=== PATIENT | female | born 1950 | race Caucasian/White ===

== ENCOUNTER → 2022-07-21 | Outpatient (CLI) | payer MEDICARE, SELFPAY ==
[2022-07-21 15:36] LABS: Absolute Lymphocyte Count 2.66 X10^3/uL (0.83-4.51); Basophil# 0.08 X10^3/uL; Basophil% 0.6 % (0-1); Eosinophil# 0.32 X10^3/uL; Eosinophils% 2.3 % (0-5); Hematocrit 40.5 % (37-47); Hemoglobin 13.1 g/dL (12.0-15.0); Lymphocyte # 2.66 X10^3/ul (0.83-4.51); Lymphocyte % 18.8 % (19-41); Mean Corp Hgb Conc 32.3 g/dL (32-36); Mean Corpuscular Hgb 30.3 pg (27.0-32.0); Mean Corpuscular Volume 93.5 fL (81-99); Mean Platelet Vol. 9.4 fl (6.2-12.0); Monocyte# 0.96 X10^3/uL; Monocyte% 6.8 % (0-10); NRBC Flagged by Analyzer 0 % (0-5); Neutrophil # 10.04 X10^3/uL (2.7-7.7); Platelet Count 378 K/mm3 (150-450); RBC Distribution Width CV 14.6 % (11.6-14.6); Red Blood Count 4.33 M/mm3 (4.2-5.4); White Blood Count 14.1 K/mm3 (4.4-11.0)
[2022-07-21 15:57] LABS: Vitamin B12 388 pg/mL (211-911); Vitamin D,25 Hydroxy 27.2 ng/mL
[2022-07-21 16:04] LABS: ALB/GLOB Ratio 0.9 RATIO (0.9-2.4); AST(SGOT) 18 U/L (15-37); Alanine Aminotransfer ALT/SGPT 43 U/L (13-56); Albumin, Serum 3.2 g/dL (3.2-5.0); Alkaline Phosphatase 67 U/L (45-117); Anion Gap 8 (5-15); BUN 17 mg/dL (7-18); Calcium,Total 8.7 mg/dL (8.5-10.1); Chloride 104 mmol/L (98-107); Cholesterol 136 mg/dL (200); EST Glomerular Filtration Rate 58 mL/min (>60); Est Glom Filt Rate - Afr Amer 70 mL/min (>60); Globulin 3.4 g/dL (2.2-4.2); Glucose 84 mg/dL (74-106); High Density Lipoprotein 68 mg/dL; Potassium 3.3 mmol/L (3.5-5.1); Protein, Total 6.6 g/dL (6.4-8.2); Sodium Level 138 mmol/L (136-145); Triglycerides 155 mg/dL; Very Low Density Lipoprotein 31 mg/dL (5-40)
[2022-07-23 16:08] LABS: Anti-Centromere B Ab <0.2 AI (0.0-0.9); Anti-Chromatin <0.2 AI (0.0-0.9); Anti-Jo <0.2 AI (0.0-0.9); Anti-Scleroderma-70 AB <0.2 AI (0.0-0.9); RNP Ab 0.2 AI (0.0-0.9); SJOGREN'S Anti-SS-A test < 0.2 AI (0.0-0.9); SJOGREN'S Anti-SS-B test < 0.2 AI (0.0-0.9); Smith Ab <0.2 AI (0.0-0.9)
[2022-07-23 20:52] LABS: Anti-dsDNA Ab <1 IU/mL (0-9)
== END | disposition home or self-care (01) ==
LOC: BIMLAB 13:11
PROVIDERS: PCP Internal Medicine; Referring Provider Internal Medicine; Visit Provider Internal Medicine
DX: M81.0 Age-related osteoporosis without current pathological fracture (principal); E55.9 Vitamin D deficiency, unspecified; I10 Essential (primary) hypertension
CPT/HCPCS: 36415; 80053; 80061; 82306; 82607; 84443; 85025; 86225; 86235

== ENCOUNTER → 2022-08-19 | Outpatient (CLI) | payer MEDICARE, SELFPAY ==
--- NOTE | 2022-08-19 14:44 | BI_ITS ---
MAMMOGRAPHY - BILATERAL SCREENING REASON FOR EXAM: Female, 72 years old. Routine annual screening examination. PERTINENT HISTORY: Personal history of breast cancer. Prior right lumpectomy with radiation treatment. Remote left excisional breast biopsy. TECHNIQUE: Digital bilateral breast marimar (3D mammographic acquisition) in the CC and MLO projections. 2-D mediolateral oblique (MLO) and craniocaudad (CC) views of both breasts were obtained. CAD: Full Field Digital Mammography with Computer Added Detection was performed. COMPARISON: Comparison is made with prior ultrasound examination dated 03/19/2020. FINDINGS: Breast Composition: There are scattered areas of fibroglandular density. There are no dominant masses or suspicious calcifications. The patient is status post lumpectomy in the deep slightly upper lateral aspect of the right breast with resultant postoperative scarring. Surgical clips are seen at that site. Surgical clips are also seen in the right axillary region. No other significant abnormalities are identified. There has been no significant change since the prior study. BI/SCRN MAMM (CAD)W/MARIMAR BILAT IMPRESSION: Stable bilateral screening mammogram. Yearly follow-up mammogram recommended. (A) ASSESSMENT CATEGORY: BIRADS Category 2: Benign. A letter regarding these results will be sent to the patient by the facility within 30 days. Approximately 10% of breast cancers are not detected by mammography. A normal mammogram should not delay biopsy of a clinically suspicious abnormality. [id number] Electronically Signed: Gregory Carrington MD at 12:57 EST ,
--- NOTE | 2022-08-19 14:55 | BD_ITS ---
STUDY: DUAL ENERGY X-RAY ABSORPTIOMETRY / DXA REASON FOR EXAM: Female, 72 years old. Pain TECHNIQUE: Bone Mineral Density (BMD) measurements of lumbar spine and bilateral hips were obtained. COMPARISON: None. FINDINGS: Lumbar Spine (L1-L4): g/cm2 (0.791) / T-score (-2.6) / Z-score (-0.3) Findings are suggestive of osteoporosis with a high fracture risk. Left Femur Total: g/cm2 (0.817) / T-score (-1.0) / Z-score (0.6) Left Femoral Neck: g/cm2 (0.671) / T-score (-1.6) / Z-score (0.3) Right Femur Total: g/cm2 (0.847) / T-score (-0.8) / Z-score (0.9) Right Femoral Neck: g/cm2 (0.638) / T-score (-1.9) / Z-score (0.0) BD/Dexa Bone Density Study IMPRESSION: The patient is considered osteopenic as outlined below according to World Colin Organization (WHO) criteria with a moderate fracture risk. Reference Information: The T-score is the number of standard deviations above or below the standard which is normal for young adults at their peak bone mineral density. The World Health Organization (WHO) interprets the T-scores as follows: Above -1 Normal bone density Between -1 and -2.5 Osteopenia Equal to / or below -2.5 Osteoporosis As a practical clinical guideline, osteopenia may be graded as follows: Mild -1 through -1.5 Moderate -1.6 through -2.0 Severe -2.1 through -2.4 The Z-score is the number of standard deviations above or below age-matched controls. A Z-score of less than -1.5 would be considered abnormal. References: 1. NIH Osteoporosis and Related Bone Diseases www osteo.org 2. International Society for Clinical Densitometry www iscd.org 3. National Osteoporosis Foundation www nof.org Electronically Signed: Gregory Carrington MD at 15:30 EST ,
== END | disposition home or self-care (01) ==
LOC: OPBD 14:41
PROVIDERS: PCP Internal Medicine; Visit Provider Orthopaedic Surgery
DX: M81.0 Age-related osteoporosis without current pathological fracture (principal); Z12.31 Encounter for screening mammogram for malignant neoplasm of breast
CPT/HCPCS: 77063; 77067; 77080

== ENCOUNTER 2022-09-30 18:02 | Emergency (ER) | payer MEDICARE, SELFPAY ==
[2022-09-30 18:04] VITALS: BP 117/70; PULSE 90; RESP 16; TEMP 36.8; O2SAT 97
[2022-09-30 18:14] VITALS: BMI 30.4
[2022-09-30 18:19] VITALS: BP 125/67; PULSE 89; RESP 20; O2SAT 96
--- NOTE | 2022-09-30 18:27 | CT_ITS ---
INDICATION: Dizziness, history of aneurysm with coil treatment EXAMINATION: CT BRAIN WITH CONTRAST TECHNIQUE: Noncontrast axial images were obtained of the brain. Subsequently, routine carotid CT angiogram protocol was performed without and with IV contrast. In addition, images were obtained of the [place]. NASCET criteria using the distal ICAs for comparison were used for evaluation of stenoses. 3D reconstructions were reviewed. A radiation dose optimization technique was used for this scan. IV Contrast dosage and agent: 100 cc [id number] COMPARISON: None. FINDINGS: --CT BRAIN: BRAIN PARENCHYMA: No intra- or extra-axial hemorrhage. No evidence of acute infarct. No intracranial mass or mass effect. Aneurysm coil near the anterior communicating artery. Posterior fossa structures are unremarkable. Volume loss with low attenuation of the periventricular white matter typical of chronic small vessel disease. CSF SPACES: Appropriate for age. No hydrocephalus. Basal cisterns are patent. CALVARIUM, SKULL BASE, PARANASAL SINUSES AND MASTOID AIR CELLS: Mucous retention cyst left maxillary sinus. Bony calvarium intact. --CTA NECK: AORTIC ARCH AND BRANCHES: Vessel origins patent. RIGHT CCA: No occlusion, significant stenosis or dissection. RIGHT ICA: No occlusion, significant stenosis or dissection. LEFT CCA: No occlusion, significant stenosis or dissection. LEFT ICA: No occlusion, significant stenosis or dissection. RIGHT VERTEBRAL ARTERY: No occlusion, significant stenosis or dissection. LEFT VERTEBRAL ARTERY: No occlusion, significant stenosis or dissection. NECK SOFT TISSUES: Left thyroidectomy changes. --CTA HEAD: --Anterior circulation: ICAs: No significant stenosis at the intracranial/visualized segments. ACAs: No significant stenosis at the visualized segments. ACOM: Present. MCAs: No significant stenosis at the visualized segments. --Posterior circulation: PCOMs: Not seen. sand caster: No significant stenosis at the visualized segments. BASILAR ARTERY: No significant stenosis. VERTEBRAL ARTERIES: No significant stenosis at the intradural/visualized segments. 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 CT/CTA Head AND Neck W/ Contrast IMPRESSION: Two 2 mm saccular aneurysms at the basilar tip. Aneurysm coil near the anterior communicating artery. Volume loss with low attenuation of the periventricular white matter typical of chronic small vessel disease. Negative CTA neck. Electronically Signed: Ryan Morales MD at 20:48 EST ,
--- NOTE | 2022-09-30 18:27 | EKG12_ITS ---
Test Reason : GEN ILLNESS Blood Pressure : / mmHG Vent. Rate : 082 BPM Atrial Rate : 082 BPM P-R Int : 190 ms QRS Dur : 098 ms QT Int : 402 ms P-R-T Axes : 041 054 003 degrees QTc Int : 469 ms Normal sinus rhythm Left ventricular hypertrophy with repolarization abnormality ( Sokolow-Jaimes ) Abnormal ECG Confirmed by VERONICA FUENTES, [place] ([id number]), clinical editor ALONA RILEY ([id number]) on 10/04/2022 11:22:20 AM Referred By: Confirmed By:[place] MARTIN MD
--- NOTE | 2022-09-30 18:31 | EX.ED.DYSGE1 ---
HPI History of Present Illness Chief Complaint: Weakness Narrative Narrative: 72-year-old female past medical history of hypertension, osteoporosis, hypothyroidism, has 3 aneurysms in her brain, one coiled in her forehead and 2 posteriorly which were not large enough to have any procedure performed. She presents with her daughter after moving up here recently from [place], with right leg weakness that she has had since last evening, and shakiness and dizziness that started today. She states that her right leg felt weak. She did not feel well and felt somewhat shaky today, and on the way to the hospital for evaluation, she states when she would turn her head right she felt fine, but when she turns her head left she would be dizzy. She denies any chest pain or shortness of breath, no other symptoms. She is unsure why she is weak on the right, but her daughter states that both of her arms were shaking this afternoon on the way to the hospital. [facility] Medical History (Updated 09/30/22 @ 21:01 by Will Aguirre MD) Acquired hypothyroidism Allergic rhinitis Anemia Anxiety and depression Brain aneurysm Chronic neck and back pain CKD (chronic kidney disease), stage III COPD (chronic obstructive pulmonary disease) Former tobacco use GERD (gastroesophageal reflux disease) Bert's disease History of breast cancer Hypertension Obesity Scoliosis Vitamin B12 deficiency Vitamin D deficiency Home Medications amlodipine 5 mg-benazepril 20 mg capsule 1 cap PO DAILY 07/08/22 [History Last Taken Unknown] atorvastatin 20 mg tablet 20 mg PO DAILY 07/08/22 [History Last Taken Unknown] cyclobenzaprine 5 mg tablet 5 mg PO TID PRN muscle spasm #20 tabs 07/08/22 [Rx Last Taken Unknown] fluoxetine 40 mg capsule 40 mg PO DAILY 07/08/22 [History Last Taken Unknown] fluticasone propionate 50 mcg/actuation nasal spray,suspension (Children's Flonase Allergy Relief) 1 spray intranasal DAILY 07/20/22 [History Last Taken Unknown] levothyroxine 50 mcg tablet 50 mcg PO DAILY 07/20/22 [History Last Taken Unknown] metoprolol succinate 50 mg tablet,extended release 24 hr 25 mg PO DAILY 07/20/22 [History Last Taken Unknown] omeprazole 20 mg capsule,delayed release 20 mg PO DAILY PRN 07/20/22 [History Last Taken Unknown] propylene glycol 0.6 % eye drops (Systane Balance) 1 drp ophthalmic (eye) DAILY PRN 07/20/22 [History Last Taken Unknown] umeclidinium 62.5 mcg/actuation blister powder for inhalation (Incruse Ellipta) 1 inh inhalation DAILY 07/20/22 [History Last Taken Unknown] handicap placard #1 ea 08/23/22 [Rx Last Taken Unknown] denosumab 60 mg/mL subcutaneous syringe (Prolia) 60 mg subcut [id number] #1 mL 09/01/22 [Rx Last Taken Unknown] Allergy/AdvReac Type Severity Reaction Status Date / Time codeine Allergy Unknown PT UNSURE Verified 09/30/22 18:15 OF REACTION iodine Allergy Unknown PT UNSURE Verified 09/30/22 18:15 OF REACTION morphine Allergy Unknown PT UNSURE Verified 09/30/22 18:15 OF REACTION Iodinated Contrast Media Allergy PT UNSURE Verified 09/30/22 18:27 [contrast dye - iodinated] OF REACTION epinephrine AdvReac Unknown PT UNSURE Verified 09/30/22 18:15 OF REACTION Family History Father Heart disease COPD (chronic obstructive pulmonary disease) Myocardial infarction Mother Lung cancer Brother Intestinal cancer Colon cancer Brother Emphysema lung Sister Brain tumor Other Cancer Surgical History (Updated 09/30/22 @ 19:[address] 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 Shakiness. HEENT: No sore throat. No neck pain. No loss of vision. No rhinorrhea. Cardiovascular: No chest pain. No palpitations. No pedal edema. Respiratory: No cough, no shortness of breath. Abdominal: No abdominal pain. No nausea. No vomiting. Genitourinary: No dysuria. No hematuria. Musculoskeletal: No myalgias. No arthralgias. Neurologic: No headaches. Positive dizziness especially when turning head to the left. No lightheadedness. Right leg weakness. Skin: No rash. No change in color. Psychiatric: No depression. No anxiety. EXAM Physical Exam Narrative Exam Narrative: Afebrile. Vital signs noted. HEENT: Normocephalic. Atraumatic. PERRL, EOMI. Neck soft and supple. No point tenderness or step off. Cardiovascular: Regular rate and rhythm. No murmurs, rubs, or gallops appreciated. Respiratory: No tachypnea. Lungs clear to auscultation bilaterally. Gastrointestinal: Abdomen soft, nontender, with normoactive bowel sounds. No rebound or guarding. Neurological: Awake. Alert. Nonfocal, nonlateralizing. NIH stroke scale is 0. Skin: No rash. Normal color. No pallor. Musculoskeletal: No pedal edema. Full range of motion extremities. Const Vital Signs: 09/30/22 18:04 09/30/22 18:19 09/30/22 20:26 Temperature 98.3 F Temperature Source Temporal Pulse Rate 90 89 77 Respiratory Rate 16 20 H 17 Blood Pressure 117/70 125/67 H 111/64 Blood Pressure Mean 85 86 79 Pulse Ox 97 96 93 Oxygen Delivery Method Room Air Room Air Room Air MDM MDM MDM Narrative Medical decision making narrative: Comprehensive work-up was pursued. Patient and her daughter's main concern is that she has the 2 aneurysms in the posterior circulation in her brain that may be leaking, causing the shakiness and right-sided leg weakness. Given her negative NIH stroke scale, I have low suspicion of aneurysmal bleed. EKG was obtained which demonstrates normal sinus rhythm at 82 bpm without ectopy or acute ST changes, no STEMI on my interpretation. I reviewed her laboratory work, she has a normal white count of 9.4, hemoglobin normal at 12.4, platelet count 311. Potassium is slightly low at 3.4, patient states she has a history of hypokalemia, and prefers to follow-up with her primary care provider regarding this. Her glucose is elevated at 191 but she has a normal anion gap of 8. BUN normal at 11 with creatinine 1.04. Urinalysis was obtained and reviewed and is negative for infection with 0-5 WBCs and negative nitrites. I do not feel antibiotics are indicated. High-sensitivity troponin is 3. Chest x-ray was obtained and interpreted by myself which shows no evidence of pneumothorax, no infiltrate. I reviewed the radiology report which confirms my interpretation is no acute process. Patient was premedicated for CTA of the head and neck. She was administered Solu-Medrol along with Benadryl. The CTA is negative with the exception of the coiled aneurysm anteriorly, and to 2 mm saccular aneurysms at the basilar tip. Given her negative work-up here, upon repeat examination, after she received Solu-Medrol and Benadryl, she states that she is not shaky any longer. I feel she be discharged safely home with follow-up. Patient and daughter are comfortable following up with her primary care physician regarding her hypokalemia. Return instructions to the emergency department were reviewed. Disposition is discharged home in stable condition. Lab Data Attestation: I reviewed the patient's lab results. Labs: Laboratory Results - last 24 hr 09/30/22 09/30/22 09/30/22 18:39 18:39 20:02 WBC 9.4 RBC 4.11 L Hgb 12.4 Hct 37.6 MCV 91.5 MCH 30.2 MCHC 33.0 RDW Std Deviation 43.7 RDW Coeff of Mo 13.2 Plt Count 311 MPV 9.2 Immature Gran % (Auto) 0.100 Neut % (Auto) 83.1 H Lymph % (Auto) 7.6 L [place] % (Auto) 6.8 Eos % (Auto) 1.7 Baso % (Auto) 0.7 Absolute Neuts (auto) 7.8 H Absolute Lymphs (auto) 0.71 L Nucleated RBC % 0 Sodium 138 Potassium 3.4 L Chloride 107 Carbon Dioxide 23.0 Anion Gap 8 BUN 11 Creatinine 1.04 H Estim Creat Clear Calc 38.67 Est GFR (MDRD) Af Amer 67 Est GFR (MDRD) Non-Af 55 L BUN/Creatinine Ratio 10.6 Glucose 191 H Calcium 8.8 Total Bilirubin 0.60 AST 19 ALT 21 Alkaline Phosphatase 86 Troponin I High Sens 3 Total Protein 6.9 Albumin 3.5 Globulin 3.4 Albumin/Globulin Ratio 1.0 Urine Color Yellow Urine Clarity Clear Urine pH 7.0 Ur Specific [place] 1.005 Urine Protein Negative Urine Glucose (UA) Normal Urine Ketones Negative Urine Occult Blood Negative Urine Nitrite Negative Urine Bilirubin Negative Urine Urobilinogen Normal Ur Leukocyte Esterase 500 H Urine RBC 0 SEEN Urine WBC 0-5 SEEN Ur Squamous Epith Cells 0 SEEN Urine Bacteria 0 SEEN Urine Mucus 0 SEEN Radiography Diagnostic Testing: Clinical Impression(s) from Imaging Studies Head/Neck CTA 09/30/22 18:27 IMPRESSION: Two 2 mm saccular aneurysms at the basilar tip. Aneurysm coil near the anterior communicating artery. Volume loss with low attenuation of the periventricular white matter typical of chronic small vessel disease. Negative CTA neck. Electronically Signed: Ryan Morales MD at 20:48 EST , Chest X-Ray 09/30/22 18:50 IMPRESSION: No radiographic evidence of acute cardiopulmonary disease. Electronically Signed: Ryan Morales MD at 19:17 EST , Discharge Plan Triage Chief Complaint: Weakness ED Provider: Will Aguirre Dx/Rx/DC Orders Clinical Impression: Cerebral aneurysm, nonruptured, Right leg weakness, Shakiness, Hypokalemia Instructions: ED Hypokalemia, ED Weakness (Uncertain Cause) Prescriptions: No Action levothyroxine 50 mcg tablet 50 mcg PO DAILY omeprazole 20 mg capsule,delayed release(DR/EC) 20 mg PO DAILY PRN Incruse Ellipta 62.5 mcg/actuation blister with device 1 inh inhalation DAILY fluticasone propionate [Children's Flonase Allergy Rlf] 50 mcg/actuation spray,suspension 1 spray intranasal DAILY Rx Instructions: administer into each nostril Systane Balance 0.6 % drops 1 drp ophthalmic (eye) DAILY PRN metoprolol succinate 50 mg tablet extended release 24 hr 25 mg PO DAILY amlodipine-benazepril 5-20 mg capsule 1 cap PO DAILY fluoxetine 40 mg capsule 40 mg PO DAILY atorvastatin 20 mg tablet 20 mg PO DAILY cyclobenzaprine 5 mg tablet 5 mg PO TID PRN (Reason: muscle spasm) Qty: 20 0RF (DME) handicap placard See Rx Instructions .ROUTE .MEDSUPPLY Qty: 1 0RF Rx Instructions: Length of time: 5 years Prolia 60 mg/mL syringe 60 mg subcut [id number] Qty: 1 5RF Primary Care Provider: Peyton Johnson Referrals: Peyton Johnson MD [Primary Care Provider] - As soon as possible Disposition Disposition: Home, Self Care
[2022-09-30 18:44] LABS: Absolute Lymphocyte Count 0.71 X10^3/uL (0.83-4.51); Absolute Neutrophil Count 7.8 X10^3/uL (2.0-7.7); Basophil# 0.07 X10^3/uL; Basophil% 0.7 % (0-1); Eosinophil# 0.16 X10^3/uL; Eosinophils% 1.7 % (0-5); Hematocrit 37.6 % (37-47); Hemoglobin 12.4 g/dL (12.0-15.0); Lymphocyte # 0.71 X10^3/ul (0.83-4.51); Lymphocyte % 7.6 % (19-41); Mean Corpuscular Hgb 30.2 pg (27.0-32.0); Mean Corpuscular Volume 91.5 fL (81-99); Mean Platelet Vol. 9.2 fl (6.2-12.0); Monocyte# 0.64 X10^3/uL; Monocyte% 6.8 % (0-10); NRBC Flagged by Analyzer 0 % (0-5); Neutrophil # 7.76 X10^3/uL (2.7-7.7); Neutrophil % 83.1 % (47-70); Platelet Count 311 K/mm3 (150-450); RBC Distribution Width CV 13.2 % (11.6-14.6); RBC Distribution Width SD 43.7 fl (35.1-43.9); Red Blood Count 4.11 M/mm3 (4.2-5.4); White Blood Count 9.4 K/mm3 (4.4-11.0)
--- NOTE | 2022-09-30 18:50 | RAD_ITS ---
INDICATION: Shakiness and weakness EXAMINATION/TECHNIQUE: X-RAY - portable upright AP chest x-ray COMPARISON: Thoracic spine series 07/08/2022 FINDINGS: LINES/DEVICES: None. LUNGS: No consolidation, edema or effusion. No pneumothorax. MEDIASTINUM AND CARDIOVASCULAR STRUCTURES: Cardiac silhouette not enlarged. Central airways and mediastinal contour are unremarkable. BONES AND SOFT TISSUES: Stable scoliosis with kyphoplasty changes mid thoracic spine. No acute abnormalities. RAD/Chest 1 View (Portable) IMPRESSION: No radiographic evidence of acute cardiopulmonary disease. Electronically Signed: Ryan Morales MD at 19:17 EST ,
[2022-09-30] MEDS: MethylPREDNISolone 125 MG/2 ML Vial IV (18:54)
[2022-09-30] MEDS: 0.9% Normal Saline 1,000 ML 1000 ML IV (18:55)
[2022-09-30] MEDS: DiphenhydrAMINE 50 MG/ML Syringe IV (18:55)
[2022-09-30 19:03] LABS: AST(SGOT) 19 U/L (15-37); Alanine Aminotransfer ALT/SGPT 21 U/L (13-56); Albumin, Serum 3.5 g/dL (3.2-5.0); Alkaline Phosphatase 86 U/L (45-117); Anion Gap 8 (5-15); BUN 11 mg/dL (7-18); BUN/Creat Ratio 10.6 RATIO (10-20); Calcium,Total 8.8 mg/dL (8.5-10.1); Chloride 107 mmol/L (98-107); Creatinine, Serum 1.04 mg/dL (0.55-1.02); EST Glomerular Filtration Rate 55 mL/min (>60); Est Glom Filt Rate - Afr Amer 67 mL/min (>60); Estimated Creatinine Clearance 38.67 ml/min; Globulin 3.4 g/dL (2.2-4.2); Glucose 191 mg/dL (74-106); Potassium 3.4 mmol/L (3.5-5.1); Protein, Total 6.9 g/dL (6.4-8.2); Sodium Level 138 mmol/L (136-145); Troponin-I HS 3 pg/mL (3.0-54.0)
[2022-09-30 20:08] LABS: Bacteria 0 SEEN /hpf (None Seen); Mucous, Urine 0 SEEN /hpf (<or=2+); Red Blood Cells-Urine 0 SEEN /hpf (0-5); Squamous Epithelial Cells - UA 0 SEEN /hpf (5-10)
[2022-09-30 20:13] LABS: Color, Urine Yellow (Yellow); Glucose, Dipstick Normal (Normal); Ketone-Dipstick Negative (Negative); Leukocyte Esterase-Dipstick 500 /ul (Negative); Nitrite-Dipstick Negative (Negative); Occult Blood-Urine Negative /ul (Negative); Protein-Dipstick Negative (Negative); Specific Gravity, Urine 1.005 (1.002-1.030); Urine Bilirubin Dipstick Negative (Negative); Urine Clarity Clear (Clear); Urine Urobilinogen Normal (Normal)
[2022-09-30 20:19] LABS: White Blood Cells 0-5 SEEN /hpf (0-5)
[2022-09-30 20:26] VITALS: BP 111/64; PULSE 77; RESP 17; O2SAT 93
[2022-09-30 21:19] VITALS: BP 113/68; PULSE 77; RESP 20; O2SAT 92
--- NOTE | 2022-09-30 21:19 | ED.RN ---
Addendum entered by Alicia Cobb 09/30/22 21:23: IV DC BY Day DEXTER RN. Original Note: PT AND FAMILY MEMBER STATE IV WAS TAKEN OUT PRIOR TO THIS RN GOING INTO PT ROOM WITH DISCHARGE PAPERWORK.
== END 2022-09-30 21:21 | disposition home or self-care (01) ==
PROVIDERS: Emergency Provider Emergency Medicine; PCP Internal Medicine; Visit Provider Emergency Medicine
DX: I67.1 Cerebral aneurysm, nonruptured (principal); N18.30 Chronic kidney disease, stage 3 unspecified; R53.1 Weakness; E87.6 Hypokalemia; Z87.891 Personal history of nicotine dependence
CPT/HCPCS: 70496; 70498; 71045; 80053; 81001; 84484; 85025; 93005; 96361; 96374; 96375; 99284; Q9967; A4216

== ENCOUNTER 2022-10-03 16:15 | Emergency (ER) | payer MEDICARE, SELFPAY ==
[2022-10-03 16:16] VITALS: BP 108/67; PULSE 71; RESP 14; TEMP 36.9; O2SAT 98; BMI 30.3
[2022-10-03] MEDS: dexAMETHasone 4 MG Tablet 6 MG PO (16:46)
--- NOTE | 2022-10-03 16:47 | EDS_ITS ---
HPI History of Present Illness Chief Complaint: General Illness Informant: patient and family Narrative Narrative: Positive COVID test yesterday. Symptomatic starting . Vaccinated with the booster no infections in the past. History of COPD. Reports increasing sinus congestion and fever and cough. No loss of taste or smell. No diarrhea. Increasing cramping right leg. Of note was seen 3 days ago in the hospital due to right leg weakness and tremors with reported history of brain aneurysms. She had a full work-up with stable aneurysms and coiling. Reported that after giving steroids and Benadryl due to contrast dye allergy she sick and felt better. She is concerned of throat swelling. She has had this in the past improved with steroids. She is tolerating oral fluids and secretions. She is not a diabetic. [facility] Medical History Acquired hypothyroidism Allergic rhinitis Anemia Anxiety and depression Brain aneurysm Chronic neck and back pain CKD (chronic kidney disease), stage III COPD (chronic obstructive pulmonary disease) Former tobacco use GERD (gastroesophageal reflux disease) Bert's disease History of breast cancer Hypertension Obesity Scoliosis Vitamin B12 deficiency Vitamin D deficiency Home Medications amlodipine 5 mg-benazepril 20 mg capsule 1 cap PO DAILY 07/08/22 [History Last Taken Unknown] atorvastatin 20 mg tablet 20 mg PO DAILY 07/08/22 [History Last Taken Unknown] cyclobenzaprine 5 mg tablet 5 mg PO TID PRN muscle spasm #20 tabs 07/08/22 [Rx Last Taken Unknown] fluoxetine 40 mg capsule 40 mg PO DAILY 07/08/22 [History Last Taken Unknown] fluticasone propionate 50 mcg/actuation nasal spray,suspension (Children's Flonase Allergy Relief) 1 spray intranasal DAILY 07/20/22 [History Last Taken Unknown] levothyroxine 50 mcg tablet 50 mcg PO DAILY 07/20/22 [History Last Taken Unknown] metoprolol succinate 50 mg tablet,extended release 24 hr 25 mg PO DAILY 07/20/22 [History Last Taken Unknown] omeprazole 20 mg capsule,delayed release 20 mg PO DAILY PRN 07/20/22 [History Last Taken Unknown] propylene glycol 0.6 % eye drops (Systane Balance) 1 drp ophthalmic (eye) DAILY PRN 07/20/22 [History Last Taken Unknown] umeclidinium 62.5 mcg/actuation blister powder for inhalation (Incruse Ellipta) 1 inh inhalation DAILY 07/20/22 [History Last Taken Unknown] handicap placard #1 ea 08/23/22 [Rx Last Taken Unknown] denosumab 60 mg/mL subcutaneous syringe (Prolia) 60 mg subcut [id number] #1 mL 09/01/22 [Rx Last Taken Unknown] dexamethasone 6 mg tablet 6 mg PO DAILY #9 tabs 10/03/22 [Rx Last Taken Unknown] nirmatrelvir 300 mg (150 mg x2)-ritonavir 100 mg tablet,dose pack(EUA) (Paxlovid) See Rx Instructions PO .COMPLEX #30 tabs 10/03/22 [Rx Last Taken Unknown] ondansetron 4 mg disintegrating tablet 4 mg PO Q8H PRN PRN Nausea #10 tabs 10/03/22 [Rx Last Taken Unknown] Allergy/AdvReac Type Severity Reaction Status Date / Time codeine Allergy Unknown PT UNSURE Verified 10/03/22 16:18 OF REACTION iodine Allergy Unknown PT UNSURE Verified 10/03/22 16:18 OF REACTION morphine Allergy Unknown PT UNSURE Verified 10/03/22 16:18 OF REACTION Iodinated Contrast Media Allergy PT UNSURE Verified 10/03/22 16:18 [contrast dye - iodinated] OF REACTION epinephrine AdvReac Unknown PT UNSURE Verified 10/03/22 16:18 OF REACTION Family History Father Heart disease COPD (chronic obstructive pulmonary disease) Myocardial infarction Mother Lung cancer Brother Intestinal cancer Colon cancer Brother Emphysema lung Sister Brain tumor Other Cancer Surgical History Cataract extraction status H/O kyphoplasty H/O partial thyroidectomy H/O: hysterectomy History of hernia repair History of lumpectomy of right breast Post-lymphadenectomy lymphedema of arm S/P coil embolization of cerebral aneurysm S/P skin cancer resection Social History household members: other details: daughter and son in law current occupational status: retired 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 Smoking Status: Former smoker quit date: 08/08/09 pack-years: 30 Electronic Cigarette Use: not used how long ago did patient quit smoking: katie alcohol intake: current alcohol intake frequency: holidays/special occasions only substance use type: does not use what type of physical activity do you participate in: walking frequency: daily do you feel safe at home: Yes ROS ROS ED Constitutional Constitutional ED: Reports fever(s); Denies chills or sweats Eyes Eyes: Denies change in vision ENT ENT ED: Reports sore throat; Denies dysphagia Cardiovascular Cardiovascular: Denies chest pain, leg edema, palpitations or racing heartbeat Respiratory/Chest Respiratory/Chest: Reports cough; Denies dyspnea or dyspnea on exertion Gastrointestinal Gastrointestinal: Denies abdominal pain, diarrhea, nausea or vomiting Genitourinary Genitourinary ED: Denies dysuria, hematuria or urinary frequency Musculoskeletal Musculoskeletal: Reports myalgias; Denies back pain, extremity pain or neck pain Integumentary Denies rash or wounds Neurologic Neurologic: Denies headache(s), paresthesias or weakness EXAM Physical Exam Const Vital Signs: 10/03/22 16:16 10/03/22 16:15 10/03/22 16:57 Temperature 98.5 F Temperature Source Temporal Pulse Rate 71 Respiratory Rate 14 Respiratory Effort Normal Non-Labored Respiratory Pattern Normal Blood Pressure 108/67 Blood Pressure Mean 80 Pulse Ox 98 97 Oxygen Delivery Method Room Air Positive well nourished and well developed General Appearance ED: well developed and NAD HEENT Reports moist mucous membranes HEENT Narrative: TMs normal bilaterally. Airway patent no stridor. No objective swelling of tongue or throat. normocephalic and atraumatic Eyes PERRL, EOMs intact bilaterally and conjunctivae normal General Eye ED: Yes normal appearance of both eyes Neck no lymphadenopathy and supple General: Negative for tenderness Chest Wall Chest: Negative for tenderness Resp normal respiratory effort and normal air movement Effort and Inspection: symmetric chest movement; Negative for respiratory distress Cardio regular rate, regular rhythm and no murmurs Peripheral Pulses: pulses 2+ throughout GI normal to inspection, nondistended, normoactive bowel sounds and non-tender Palpation: Negative for guarding or rebound tenderness present Back/Spine no CVA tenderness and no thoracic nor lumbar tenderness Extremity normal to inspection General Extremety ED: Negative for edema or tenderness General Extremity: Negative for edema Neuro oriented x3, CN's II-XII intact bilaterally and no sensory deficits noted Sensorium / Orientation: awake and alert Skin no rashes or lesions noted and no wounds MDM MDM MDM Narrative Medical decision making narrative: Interventions / MDM: Differential diagnosis: COVID-19 infection, viral syndrome, Diagnosis considered but do not suspect: Pneumonia, no rales on exam. My EKG interpretation: N/A Imaging independently reviewed and interpreted by myself: N/A External documents reviewed: N/A Test considered but not ordered:N/A ED course: Patient vital stable nontoxic pulse ox 98% on room air. No objective swelling. She has comorbidities she is day 3 of symptoms discussed treatment with Paxlovid for which they agree. She started on dexamethasone and steroids helped her symptoms she is not hypoxic. She does have history of COPD. prescription for Zofran in case side effects of nausea and vomiting. She will hold her statin medication while taking this medication. Return precautions. Re-evaluation: stable Disposition discussed with patient/family/significant other: Patient and daughter. Case discussed with consulting clinician: N/A Discharge Plan Triage Chief Complaint: General Illness ED Provider: Troy Moreno Dx/Rx/DC Orders Clinical Impression: COVID-19 virus infection, History of COPD, Cough Instructions: Coronavirus Disease 2019 (COVID-19): Caring for Yourself or Others Prescriptions: New Paxlovid (EUA) 300 mg (150 mg x 2)-100 mg tablets,dose pack See Rx Instructions .ROUTE .COMPLEX Qty: 30 0RF Rx Instructions: take TWO 150 mg tablets of nirmatrelvir with ONE 100 mg tablet of ritonavir twice daily for 5 days dexamethasone 6 mg tablet 6 mg PO DAILY Qty: 9 0RF Rx Instructions: Next dose tomorrow 10/04/2022 ondansetron [ondansetron] 4 mg tablet,disintegrating 4 mg PO Q8H PRN PRN (Reason: Nausea) Qty: 10 0RF No Action levothyroxine 50 mcg tablet 50 mcg PO DAILY omeprazole 20 mg capsule,delayed release(DR/EC) 20 mg PO DAILY PRN Incruse Ellipta 62.5 mcg/actuation blister with device 1 inh inhalation DAILY fluticasone propionate [Children's Flonase Allergy Rlf] 50 mcg/actuation spray,suspension 1 spray intranasal DAILY Rx Instructions: administer into each nostril Systane Balance 0.6 % drops 1 drp ophthalmic (eye) DAILY PRN metoprolol succinate 50 mg tablet extended release 24 hr 25 mg PO DAILY amlodipine-benazepril 5-20 mg capsule 1 cap PO DAILY fluoxetine 40 mg capsule 40 mg PO DAILY atorvastatin 20 mg tablet 20 mg PO DAILY cyclobenzaprine 5 mg tablet 5 mg PO TID PRN (Reason: muscle spasm) Qty: 20 0RF (DME) handicap placard See Rx Instructions .ROUTE .MEDSUPPLY Qty: 1 0RF Rx Instructions: Length of time: 5 years Prolia 60 mg/mL syringe 60 mg subcut [id number] Qty: 1 5RF Primary Care Provider: Peyton Johnson Referrals: Peyton Johnson MD [Primary Care Provider] - 3-5 Days Activity Restrictions/Additional Instructions: Take medications as prescribed. Hold your cholesterol medicine while taking Paxlovid. Monitor oxygenation. Develop worsening dyspnea if able check pulse ox, if less than 88% return to the ED. Follow-up with your doctor. Return if worsening symptoms. Disposition Disposition: Home, Self Care Discharge Date/Time: 10/03/22 17:32
[2022-10-03 16:57] VITALS: O2SAT 97
== END 2022-10-03 17:32 | disposition home or self-care (01) ==
PROVIDERS: Emergency Provider Emergency Medicine; PCP Internal Medicine; Visit Provider Emergency Medicine
DX: U07.1 COVID-19 (principal); N18.30 Chronic kidney disease, stage 3 unspecified; Z87.891 Personal history of nicotine dependence
CPT/HCPCS: 99283

== ENCOUNTER → 2022-12-07 | Outpatient (CLI) | payer MEDICARE, SELFPAY ==
[2022-12-07 12:59] LABS: Vitamin D,25 Hydroxy 35.6 ng/mL
[2022-12-07 13:13] LABS: Hemoglobin A1c 5.5 % (3.8-5.6)
[2022-12-07 13:35] LABS: AST(SGOT) 22 U/L (15-37); Alanine Aminotransfer ALT/SGPT 24 U/L (13-56); Albumin, Serum 3.6 g/dL (3.2-5.0); Alkaline Phosphatase 64 U/L (45-117); Anion Gap 8 (5-15); BUN 17 mg/dL (7-18); BUN/Creat Ratio 18.5 RATIO (10-20); Calcium,Total 9.8 mg/dL (8.5-10.1); Chloride 107 mmol/L (98-107); Creatinine, Serum 0.92 mg/dL (0.55-1.02); EST Glomerular Filtration Rate 64 mL/min (>60); Est Glom Filt Rate - Afr Amer 77 mL/min (>60); Globulin 3.5 g/dL (2.2-4.2); Glucose 92 mg/dL (74-106); Potassium 3.3 mmol/L (3.5-5.1); Protein, Total 7.1 g/dL (6.4-8.2); Sodium Level 141 mmol/L (136-145)
== END | disposition home or self-care (01) ==
LOC: BIMLAB 11:36
PROVIDERS: PCP Internal Medicine; Referring Provider Internal Medicine; Visit Provider Internal Medicine
DX: I10 Essential (primary) hypertension (principal); R73.09 Other abnormal glucose; M81.0 Age-related osteoporosis without current pathological fracture
CPT/HCPCS: 36415; 80053; 82306; 83036

== ENCOUNTER → 2022-12-30 | Outpatient (CLI) | payer MEDICARE, SELFPAY ==
--- NOTE | 2022-12-30 08:57 | ECHOCS_ITS ---
Reason For Study: Dyspnea/SOB Procedure This was a 2D Doppler, Color Flow transthoracic echocardiogram. The study was technically difficult. Contrast injection was performed. Exam performed in department. Left Ventricle Normal LV size. Left ventricular systolic function is normal. The estimated ejection fraction is 60 %. Stage 1 diastolic dysfunction. No regional wall motion abnormalities noted. Right Ventricle Normal RV size. Normal systolic function. Atria Normal left atrium. Normal right atrium. Mitral Valve Normal mitral valve. Tricuspid Valve Normal tricuspid valve. Mild tricuspid valve insufficiency. Pulmonary artery systolic pressure is 30 mmHg. Aortic Valve Trisinus/trileaflet aortic valve. Pulmonic Valve Normal pulmonic valve. Great Vessels Normal aortic root. The pulmonary artery is normal size. Normal inferior vena cava. Pericardium/Pleural No pericardial effusion. Medication 22 gauge I.V. with prn adaptor inserted into left arm. Diluted definity 3ml given slow IV push to enhance endocardial definition. MMode/2D Measurements & Calculations LVIDd: 3.8 cm IVSd: 0.98 cm Ao root diam: 3.3 cm LVIDs: 2.7 cm LVPWd: 0.78 cm LA dimension: 3.2 cm RVDd: 3.5 cm FS: 27.6 % LAV(MOD-bp): 32.3 ml LA A4 area: 12.6 cm2 RA A4 area: 13.2 cm2 LAV(MOD-bp) Indexed: 18.3 ml/m2 LAV(MOD-sp2): 38.7 ml LAV(MOD-sp4): 26.9 ml Time Measurements MV dec time: 0.27 sec Doppler Measurements & Calculations MV E max paco: 69.1 cm/sec Lat Peak E' Paco: 9.8 cm/sec Med Peak E' Paco: 5.1 cm/sec MV A max paco: 80.2 cm/sec E/E' lat: 7.1 E/E' med: 13.5 MV E/A: 0.86 MV V2 max: 88.8 cm/sec MV P1/2t max paco: 75.5 cm/sec Ao V2 max: 130.9 cm/sec MV max P.2 mmHg MV P1/2t: 86.2 msec Ao max P.9 mmHg MV V2 mean: 49.3 cm/sec MV dec slope: 256.5 cm/sec2 Ao V2 mean: 91.1 cm/sec MV mean P.1 mmHg Ao mean P.8 mmHg MV V2 VTI: 23.3 cm MVA(P1/2t): 2.6 cm2 Ao V2 VTI: 27.7 cm AV (velocity ratio): 0.68 LV V1 max: 92.8 cm/sec PA V2 max: 87.7 cm/sec TR max paco: 254.8 cm/sec LV V1 max P.4 mmHg PA V2 mean: 63.2 cm/sec TR max P.0 mmHg LV V1 mean P.0 mmHg LV V1 mean: 66.1 cm/sec LV V1 VTI: 19.0 cm ECHO/Echo Complete W/ Contrast Interpretation Summary Normal LV size. Left ventricular systolic function is normal. The estimated ejection fraction is 60 %. Stage 1 diastolic dysfunction. Pulmonary artery systolic pressure is 30 mmHg. Contrast injection was performed. Ordering Physician: Peyton Johnson Referring Physician: Peyton Johnson Performed By: Cameron Sheehan RCS
--- NOTE | 2022-12-31 05:59 | PFTCOMP_ITS ---
COMPLETE PULMONARY FUNCTION TEST INTERPRETATION Brief HPI: Patient is a 72-year-old female, currently under the care of Dr. Johnson, who presents to [facility] for complete pulmonary function tests secondary to diagnosis of dyspnea. Respiratory therapist reports good effort and reproducible results. Interpretation: Forced expiration spirometry shows no large airways obstructive ventilatory defect with an FEV1 of 119% predicted. There is no significant bronchodilator response by strict ATS criteria. Spirograms are of good quality and plateau normally. The respiratory flow volume loop shows decreased expiratory flow rates at high lung volumes consistent with small airways obstruction. Lung volumes by body plethysmography show a normal total lung capacity at 4.7 L, 107% predicted. All other lung volumes are within normal limits. Diffusion capacity by carbon monoxide is normal at 73% predicted. The airway resistance is normal. No previous pulmonary function tests were available for review. Impression: These pulmonary function tests are grossly within normal limits. There is some stigmata of small airways disease noted
== END | disposition home or self-care (01) ==
LOC: CVS 08:53
PROVIDERS: PCP Internal Medicine; Referring Provider Internal Medicine; Visit Provider Internal Medicine
DX: R06.2 Wheezing (principal); J44.9 Chronic obstructive pulmonary disease, unspecified
CPT/HCPCS: 93306; 94060; 94726; 94729; Q9957; A4216; C8929

== ENCOUNTER → 2023-01-11 | Outpatient (CLI) | payer MEDICARE, SELFPAY ==
[2023-01-11 16:49] LABS: Anion Gap 7 (5-15); BUN 18 mg/dL (7-18); BUN/Creat Ratio 19.4 RATIO (10-20); Calcium,Total 9.7 mg/dL (8.5-10.1); Chloride 108 mmol/L (98-107); Creatinine, Serum 0.93 mg/dL (0.55-1.02); EST Glomerular Filtration Rate 63 mL/min (>60); Est Glom Filt Rate - Afr Amer 76 mL/min (>60); Glucose 81 mg/dL (74-106); Potassium 3.9 mmol/L (3.5-5.1); Sodium Level 141 mmol/L (136-145)
== END | disposition home or self-care (01) ==
LOC: BIMLAB 15:14
PROVIDERS: PCP Internal Medicine; Visit Provider Internal Medicine
DX: I10 Essential (primary) hypertension (principal)
CPT/HCPCS: 36415; 80048

== ENCOUNTER → 2023-05-04 | Outpatient (CLI) | payer MEDICARE, SELFPAY ==
[2023-05-04 13:20] LABS: Rubella IgG Non-Reactive (Nonreactive)
[2023-05-05 06:09] LABS: Mumps Antibody,IgG > 300.0 AU/mL (Immune >10.9); Rubeola IgG Ab > 300.0 AU/mL (Immune >16.4); V-Zoster IgG (Immunity) 2970 index (Immune >165)
== END | disposition home or self-care (01) ==
LOC: BIMLAB 11:19
PROVIDERS: PCP Internal Medicine; Referring Provider Internal Medicine; Visit Provider Internal Medicine
DX: Z01.84 Encounter for antibody response examination (principal)
CPT/HCPCS: 36415; 86735; 86762; 86765; 86787

== ENCOUNTER 2023-05-22 15:55 | Emergency (ER) | payer MEDICARE, SELFPAY ==
[2023-05-22 15:56] VITALS: BP 132/83; PULSE 91; RESP 19; TEMP 36.6; O2SAT 99; BMI 30.3
--- NOTE | 2023-05-22 16:12 | EKG12_ITS ---
Test Reason : SOB/ DIZZY Blood Pressure : / mmHG Vent. Rate : 079 BPM Atrial Rate : 079 BPM P-R Int : 182 ms QRS Dur : 102 ms QT Int : 406 ms P-R-T Axes : 042 047 040 degrees QTc Int : 465 ms Normal sinus rhythm Minimal voltage criteria for LVH, may be normal variant ( Sokolow-Jaimes ) Nonspecific ST abnormality Abnormal ECG Confirmed by VERONICA FUENTES, [place] ([id number]), assistant production editor JENNIFER COLE ([id number]) on 05/26/2023 11:32:05 AM Referred By: Confirmed By:[place] MARTIN MD
--- NOTE | 2023-05-22 16:16 | ED.VIS.DYS ---
HPI <MENA Maldonado - Last Filed: 05/22/23 20:10> History of Present Illness Chief Complaint: Shortness of Breath Narrative Narrative: Patient presenting today due to shortness of breath on exertion that she has had for the past few years that has been worsening over the past few months. She reports that her PCP is working her up for this. Today, she was at [employer] walking around when she became short of breath and fatigued and decided to come in to be evaluated. She reports that she does at times get midsternal chest tightness with exertion but has not had any chest discomfort today. She had a echocardiogram performed in December of this year that showed a 60% ejection fraction. She has not had a stress test performed in a long time. PMH includes hypertension, hyperlipidemia, Bert's, brain aneurysm with coiling, and small airway disease. PFSH <MENA Maldonado - Last Filed: 05/22/23 20:10> [facility] Medical History Acquired hypothyroidism Allergic rhinitis Anemia Anxiety and depression Brain aneurysm Chronic neck and back pain CKD (chronic kidney disease), stage III COPD (chronic obstructive pulmonary disease) COVID-19 virus infection Former tobacco use GERD (gastroesophageal reflux disease) Bert's disease History of breast cancer Hypertension Obesity Scoliosis Vitamin B12 deficiency Vitamin D deficiency Home Medications amlodipine 5 mg-benazepril 20 mg capsule 1 cap PO DAILY 07/08/22 [History Last Taken Unknown] cyclobenzaprine 5 mg tablet 5 mg PO TID PRN muscle spasm #20 tabs 07/08/22 [Rx Last Taken Unknown] fluoxetine 40 mg capsule 40 mg PO DAILY 07/08/22 [History Last Taken Unknown] fluticasone propionate 50 mcg/actuation nasal spray,suspension (Children's Flonase Allergy Relief) 1 spray intranasal DAILY 07/20/22 [History Last Taken Unknown] omeprazole 20 mg capsule,delayed release 20 mg PO DAILY PRN 07/20/22 [History Last Taken Unknown] propylene glycol 0.6 % eye drops (Systane Balance) 1 drp ophthalmic (eye) DAILY PRN 07/20/22 [History Last Taken Unknown] handicap placard #1 ea 08/23/22 [Rx Last Taken Unknown] denosumab 60 mg/mL subcutaneous syringe (Prolia) 60 mg subcut [id number] #1 mL 03/17/23 [Rx Last Taken Unknown] atorvastatin 20 mg tablet 20 mg PO DAILY #90 tabs 04/07/23 [Rx Last Taken Unknown] fexofenadine 180 mg tablet (Sparkle Allergy) 180 mg PO DAILY #10 tabs 04/07/23 [Rx Last Taken Unknown] levothyroxine 50 mcg tablet 50 mcg PO DAILY #90 tabs 05/02/23 [Rx Last Taken Unknown] umeclidinium 62.5 mcg/actuation blister powder for inhalation (Incruse Ellipta) 1 inh inhalation DAILY #30 ea 05/04/23 [Rx Last Taken Unknown] Allergy/AdvReac Type Severity Reaction Status Date / Time codeine Allergy Unknown PT UNSURE Verified 05/22/23 15:56 OF REACTION iodine Allergy Unknown PT UNSURE Verified 05/22/23 15:56 OF REACTION morphine Allergy Unknown PT UNSURE Verified 05/22/23 15:56 OF REACTION Iodinated Contrast Media Allergy PT UNSURE Verified 05/22/23 15:56 [contrast dye - iodinated] OF REACTION epinephrine AdvReac Unknown PT UNSURE Verified 05/22/23 15:56 OF REACTION Family History Father Heart disease COPD (chronic obstructive pulmonary disease) Myocardial infarction Mother Lung cancer Brother Intestinal cancer Colon cancer Brother Emphysema lung Sister Brain tumor Other Cancer Surgical History Cataract extraction status H/O kyphoplasty H/O partial thyroidectomy H/O: hysterectomy History of hernia repair History of lumpectomy of right breast Post-lymphadenectomy lymphedema of arm S/P coil embolization of cerebral aneurysm S/P skin cancer resection Social History household members: other details: daughter and son in law current occupational status: retired 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 [employer] Smoking Status: Former smoker quit date: 08/08/09 pack-years: 30 Electronic Cigarette Use: not used how long ago did patient quit smoking: katie alcohol intake: current alcohol intake frequency: holidays/special occasions only substance use type: does not use what type of physical activity do you participate in: walking frequency: daily do you feel safe at home: Yes ROS <MENA Maldonado - Last Filed: 05/22/23 20:10> ROS ED Constitutional Constitutional ED: Denies chills or fever(s) Cardiovascular Cardiovascular: Denies chest pain or palpitations Respiratory/Chest Respiratory/Chest: Reports dyspnea on exertion; Denies cough or wheezing Gastrointestinal Gastrointestinal: Denies abdominal pain, nausea or vomiting Musculoskeletal Musculoskeletal: Denies arthralgias or myalgias Integumentary Denies Abrasions or rash Neurologic Neurologic: Denies paresthesias or weakness EXAM <MENA Maldonado - Last Filed: 05/22/23 20:10> Physical Exam Const Vital Signs: 05/22/23 15:56 05/22/23 16:18 05/22/23 16:18 Temperature 97.9 F Temperature Source Temporal Pulse Rate 91 80 Respiratory Rate 19 H 23 H Respiratory Effort Short of Breath Respiratory Depth Normal Respiratory Pattern Tachypnea Blood Pressure 132/83 H 122/71 H Blood Pressure Mean 99 88 Pulse Ox 99 98 Oxygen Delivery Method Room Air Room Air Room Air 05/22/23 18:52 Temperature Temperature Source Pulse Rate 85 Respiratory Rate Respiratory Effort Respiratory Depth Respiratory Pattern Blood Pressure 124/60 H Blood Pressure Mean 81 Pulse Ox 96 Oxygen Delivery Method Positive well nourished, well developed and no apparent distress General Appearance ED: well developed HEENT Reports normocephalic and head/scalp atraumatic Mouth ED: Yes moist mucous membranes normal Eyes PERRL and EOMs intact bilaterally Neck full ROM and supple Chest Wall inspection of chest normal Resp normal respiratory effort and clear to auscultation bilaterally Cardio regular rate and regular rhythm GI soft to palpation, non-tender, non-distended and no masses Back/Spine normal ROM and normal to inspection Extremity normal to inspection and full ROM Neuro oriented x3, CN's II-XII intact bilaterally, moves all extremities, no focal motor deficits and no sensory deficits noted Sensorium / Orientation: awake and alert Psych mental status grossly normal and thought process normal Skin no rashes or lesions noted and no wounds <Dr. Nasir Baker MD - Last Filed: 05/22/23 17:40> Physical Exam Const Vital Signs: 05/22/23 15:56 05/22/23 16:18 05/22/23 16:18 Temperature 97.9 F Temperature Source Temporal Pulse Rate 91 80 Respiratory Rate 19 H 23 H Respiratory Effort Short of Breath Respiratory Depth Normal Respiratory Pattern Tachypnea Blood Pressure 132/83 H 122/71 H Blood Pressure Mean 99 88 Pulse Ox 99 98 Oxygen Delivery Method Room Air Room Air Room Air 05/22/23 18:52 Temperature Temperature Source Pulse Rate 85 Respiratory Rate Respiratory Effort Respiratory Depth Respiratory Pattern Blood Pressure 124/60 H Blood Pressure Mean 81 Pulse Ox 96 Oxygen Delivery Method [facility] <MENA Maldonado - Last Filed: 05/22/23 20:10> [facility] Narrative Medical decision making narrative: Patient presenting due to shortness of breath on exertion that she has had for the past few years that has worsened over the past few months, this is being worked up by her PCP. She is well-appearing and in no acute distress, she does not actively feel short of breath, she is 98% on room air. She was walking around close today and became fatigued and short of breath and was told by her PCP to come in and be evaluated if she ever develops symptoms like that so she came in to be seen. Labs obtained to rule out leukocytosis, anemia, electrolyte abnormality, and ACS. Initial troponin is 5, delta will be obtained. Nonspecific slight elevation in WBC. Chest x-ray obtained to rule out infiltrate and other cardiopulmonary abnormality and is negative. I did add a D-dimer as patient has a previous history of DVT that was provoked by surgery but she is not on any blood thinners, D-dimer when age-adjusted is WNL. Patient was ambulated and did not become hypoxic or symptomatic. Delta troponin 5. Patient will be given referral for cardiology and pulmonology, I feel that she can be worked up for this safely as an outpatient and have encouraged her to have a stress test performed with her PCP. She has been given return instructions and will be discharged home in stable condition. She is comfortable with plan. Lab Data Attestation: I reviewed the patient's lab results. Lab results narrative: WBC 11.2, 3.4 Labs: Laboratory Results - last 24 hr 05/22/23 05/22/23 05/22/23 16:16 17:00 18:19 WBC 11.2 H RBC 4.02 L Hgb 11.8 L Hct 37.5 MCV 93.3 MCH 29.4 MCHC 31.5 L RDW Std Deviation 47.1 H RDW Coeff of Mo 13.7 Plt Count 369 MPV 9.4 Immature Gran % (Auto) 0.300 Neut % (Auto) 64.0 Lymph % (Auto) 25.1 Hamlin % (Auto) 7.4 Eos % (Auto) 2.4 Baso % (Auto) 0.8 Absolute Neuts (auto) 7.1 Absolute Lymphs (auto) 2.80 Nucleated RBC % 0 D-Dimer Quant (PE/DVT) 0.53 H* Sodium 140 Potassium 3.4 L Chloride 105 Carbon Dioxide 25.0 Anion Gap 10 BUN 17 Creatinine 0.93 Estim Creat Clear Calc 42.61 Est GFR (MDRD) Af Amer 76 Est GFR (MDRD) Non-Af 63 BUN/Creatinine Ratio 18.4 Glucose 93 Calcium 10.0 Troponin I High Sens 5 5 Radiography X-Ray: Read by ED Physician and Read by Radiologist Diagnostic Testing: Clinical Impression(s) from Imaging Studies Chest X-Ray 05/22/23 16:25 IMPRESSION: No acute pulmonary finding. Electronically Signed: Jesus Garcia MD at 17:00 EDT , EKG Initial EKG: Comments: 79 bpm, normal sinus rhythm, no ST elevation, reviewed and interpreted by attending ED physician <Dr. Nasir Baker MD - Last Filed: 05/22/23 17:40> MDM History & Record Review Additional record(s) reviewed:: Prior outpatient record (Echocardiogram, pulmonary function testing from December/2022) Lab Data Labs: Laboratory Results - last 24 hr 05/22/23 05/22/23 05/22/23 16:16 17:00 18:19 WBC 11.2 H RBC 4.02 L Hgb 11.8 L Hct 37.5 MCV 93.3 MCH 29.4 MCHC 31.5 L RDW Std Deviation 47.1 H RDW Coeff of Mo 13.7 Plt Count 369 MPV 9.4 Immature Gran % (Auto) 0.300 Neut % (Auto) 64.0 Lymph % (Auto) 25.1 Hamlin % (Auto) 7.4 Eos % (Auto) 2.4 Baso % (Auto) 0.8 Absolute Neuts (auto) 7.1 Absolute Lymphs (auto) 2.80 Nucleated RBC % 0 D-Dimer Quant (PE/DVT) 0.53 H* Sodium 140 Potassium 3.4 L Chloride 105 Carbon Dioxide 25.0 Anion Gap 10 BUN 17 Creatinine 0.93 Estim Creat Clear Calc 42.61 Est GFR (MDRD) Af Amer 76 Est GFR (MDRD) Non-Af 63 BUN/Creatinine Ratio 18.4 Glucose 93 Calcium 10.0 Troponin I High Sens 5 5 Radiography Diagnostic Testing: Clinical Impression(s) from Imaging Studies Chest X-Ray 05/22/23 16:25 IMPRESSION: No acute pulmonary finding. Electronically Signed: Jesus Garcia MD at 17:00 EDT , Treatment and Re-Evaluation Comments:: I have personally performed a face to face assessment of the patient and have reviewed the TORSTEN Note. I performed a substantive portion of the visit including all aspects of the following. My leach findings include: History is worsening episodes and more frequent dyspnea with exertion that has been occurring for maybe a couple years. Seems to be worse in the past several weeks. Very dyspneic and needs to rest even with little exertion at times now but not all the time. No associated chest discomfort, palpitations, near syncope, focal neurologic symptoms. Exam is well-appearing at rest now no tachycardia, clear to auscultation throughout, no JVD, pedal edema, calf tenderness, or audible murmurs/ectopy. Medical Decison Making wide differential including cardio pulmonary etiologies, uncontrolled hypertension which does not appear to be the case now, and autoimmune etiologies such as IPF, sarcoidosis, etc. Some of these will be able to be diagnosed in the emergency department others not. Discussed this at length with the patient and her family. She is already had PFTs that were unremarkable as well as an echocardiogram that we reviewed and was unremarkable except for grade 1 diastolic dysfunction and some pulmonary hypertension with pulmonary artery pressure at 30. In addition patient states she had an outpatient stress test when she was being worked up for this years ago in [place]. Here, chest x-ray 1 view shows some scoliosis but no acute pulmonary disease or cardiomegaly. Radiology in agreement. Initial blood testing including initial troponin normal, we are obtaining a delta in 2 hours to rule out acute coronary syndrome and also a D-dimer to evaluate for venous thromboembolic disease. She is at low risk for this. Other additions or changes: [None] Discharge Plan Triage Chief Complaint: Shortness of Breath ED Midlevel Provider: Carmela Santos ED Provider: Nasir Baker Dx/Rx/DC Orders Clinical Impression: BRITO (dyspnea on exertion) Instructions: ED Dyspnea Prescriptions: No Action omeprazole 20 mg capsule,delayed release(DR/EC) 20 mg PO DAILY PRN fluticasone propionate [Children's Flonase Allergy Rlf] 50 mcg/actuation spray,suspension 1 spray intranasal DAILY Rx Instructions: administer into each nostril Systane Balance 0.6 % drops 1 drp ophthalmic (eye) DAILY PRN amlodipine-benazepril 5-20 mg capsule 1 cap PO DAILY fluoxetine 40 mg capsule 40 mg PO DAILY cyclobenzaprine 5 mg tablet 5 mg PO TID PRN (Reason: muscle spasm) Qty: 20 0RF (DME) handicap placard See Rx Instructions .ROUTE .MEDSUPPLY Qty: 1 0RF Rx Instructions: Length of time: 5 years fexofenadine [Sparkle Allergy] 180 mg tablet 180 mg PO DAILY Qty: 10 0RF atorvastatin 20 mg tablet 20 mg PO DAILY Qty: 90 1RF Incruse Ellipta 62.5 mcg/actuation blister with device 1 inh inhalation DAILY Qty: 30 1RF Prolia 60 mg/mL syringe 60 mg subcut [id number] Qty: 1 0RF levothyroxine 50 mcg tablet 50 mcg PO DAILY Qty: 90 0RF Primary Care Provider: Peyton Johnson Referrals: Peyton Johnson MD [Primary Care Provider] - 3-5 Days Beni Lugo MD [Med Staff - Active Staff] - As Needed Isac Duarte MD [Med Staff - Active Staff] - As Needed Pino Garcia DO [Med Staff - Active Staff] - As Needed Activity Restrictions/Additional Instructions: Please follow-up with pulmonology and cardiology as well as your PCP. Return for any worsening of your symptoms. Disposition Disposition: Home, Self Care Discharge Date/Time: 05/22/23 19:03
[2023-05-22 16:18] VITALS: BP 122/71; PULSE 80; RESP 23; O2SAT 98
[2023-05-22 16:24] LABS: Absolute Neutrophil Count 7.1 X10^3/uL (2.0-7.7); Basophil# 0.09 X10^3/uL; Basophil% 0.8 % (0-1); Eosinophil# 0.27 X10^3/uL; Eosinophils% 2.4 % (0-5); Hematocrit 37.5 % (37-47); Hemoglobin 11.8 g/dL (12.0-15.0); Lymphocyte % 25.1 % (19-41); Mean Corp Hgb Conc 31.5 g/dL (32-36); Mean Corpuscular Hgb 29.4 pg (27.0-32.0); Mean Corpuscular Volume 93.3 fL (81-99); Mean Platelet Vol. 9.4 fl (6.2-12.0); Monocyte# 0.83 X10^3/uL; Monocyte% 7.4 % (0-10); NRBC Flagged by Analyzer 0 % (0-5); Neutrophil # 7.13 X10^3/uL (2.7-7.7); Platelet Count 369 K/mm3 (150-450); RBC Distribution Width CV 13.7 % (11.6-14.6); RBC Distribution Width SD 47.1 fl (35.1-43.9); Red Blood Count 4.02 M/mm3 (4.2-5.4); White Blood Count 11.2 K/mm3 (4.4-11.0)
--- NOTE | 2023-05-22 16:25 | RAD_ITS ---
INDICATION: Shortness of breath EXAMINATION/TECHNIQUE: X-RAY - XR Chest 2 Views COMPARISON: 09/30/2022 FINDINGS: LINES/DEVICES: None. LUNGS: The lungs are well expanded. No consolidation, edema or effusion. No pneumothorax. MEDIASTINUM AND CARDIOVASCULAR STRUCTURES: Cardiac silhouette not enlarged. Central airways and mediastinal contour are unremarkable. Aorta is other sclerotic. BONES AND SOFT TISSUES: No acute osseous abnormalities. Midthoracic kyphoplasties. RAD/Chest PA and Lateral IMPRESSION: No acute pulmonary finding. Electronically Signed: Jesus Garcia MD at 17:00 EDT ,
[2023-05-22 16:41] LABS: Anion Gap 10 (5-15); BUN 17 mg/dL (7-18); BUN/Creat Ratio 18.4 RATIO (10-20); Chloride 105 mmol/L (98-107); Creatinine, Serum 0.93 mg/dL (0.55-1.02); EST Glomerular Filtration Rate 63 mL/min (>60); Est Glom Filt Rate - Afr Amer 76 mL/min (>60); Estimated Creatinine Clearance 42.61 ml/min; Glucose 93 mg/dL (74-106); Potassium 3.4 mmol/L (3.5-5.1); Sodium Level 140 mmol/L (136-145); Troponin-I HS (w/2H Reflex) 5 pg/mL (3.0-54.0)
[2023-05-22 18:15] LABS: D-Dimer Quantitative (DVT/PE) 0.53 FEU/ug/m (0.27-0.49)
[2023-05-22 18:21] LABS: Reflex Troponin-HS? (from REC) Y
[2023-05-22 18:46] LABS: Troponin-I HS 5 pg/mL (3.0-54.0)
[2023-05-22 18:52] VITALS: BP 124/60; PULSE 85; O2SAT 96
== END 2023-05-22 19:03 | disposition home or self-care (01) ==
PROVIDERS: Physician Assistant; Emergency Provider Emergency Medicine; PCP Internal Medicine; Visit Provider Emergency Medicine
DX: R06.09 Other forms of dyspnea (principal); N18.30 Chronic kidney disease, stage 3 unspecified; Z86.16 Personal history of COVID-19; Z87.891 Personal history of nicotine dependence
CPT/HCPCS: 71046; 80048; 84484; 85025; 85379; 93005; 99284; A4216

== ENCOUNTER → 2023-06-09 | Outpatient (CLI) | payer MEDICARE, SELFPAY ==
--- NOTE | 2023-06-14 14:52 | STRESSREP_ITS ---
Stress Test Report Date: 06/09/2023 Procedure: Pharmacologic stress nuclear imaging study Indications: Dyspnea on exertion Consent: Per the patient Procedure: The patient underwent pharmacologic (Regadenoson) evaluation with a peak heart rate of 89 beats per minute (60%predicted maximal heart rate) and a peak blood pressure of 136/82 mmHg. The baseline ECG demonstrated normal sinus rhythm. EKG during lexiscan infusion revealed no significant ischemic changes. EKG post infusion revealed no significant ischemic changes [There were no cardiac dysrhythmias pretest, during pharmacologic infusion, or recovery]. [There was no complaint of chest discomfort during pharmacologic infusion or recovery]. The examination was discontinued secondary to completion of protocol. Impression: 1. Lexiscan stress test test is negative for Lexiscan infusion induced EKG changes of ischemia. 2. Lexiscan stress test test is negative for Lexiscan infusion induced chest pain. 3. Results of the nuclear portion of the test is as below Myocardial perfusion imaging study: Technique: The patient was injected with 11.8 millicuries of technetium 99m Cardiolite and subsequently rest SPECT Cardiolite nuclear imaging was obtained in the horizontal long, vertical long, and short axis views. The patient underwent pharmacologic [Regadenoson 0.4mg] evaluation. Please see above for details. The patient was injected with 36 millicuries of technetium 99m Cardiolite and subsequently stress SPECT Cardiolite nuclear imaging was obtained in the horizontal long, vertical long, and short axis views. A gated Cardiolite study at peak stress was obtained. Interpretation: Rest and stress SPECT Cardiolite nuclear imaging status post realignment, mejia lization, and attenuation correction demonstrate overall normal myocardial radioisotope uptake. Gated images reveal no significant regional wall motion abnormalities. The reported LVEF is greater than 70%. Impression: 1. There is no evidence of significant ischemia or infarction. 2. Estimated ejection fraction is greater than 70%. This note was generated with [employer]ation software. It may contain incorrect words, spelling, and punctuation that were not noted in checking the note before signing.
== END | disposition home or self-care (01) ==
PROVIDERS: PCP Internal Medicine; Referring Provider Internal Medicine; Visit Provider Internal Medicine
DX: R06.09 Other forms of dyspnea (principal)
CPT/HCPCS: 78452; 93017; A9500; A4216; J2785

== ENCOUNTER → 2023-07-28 | Outpatient (CLI) | payer MEDICARE, SELFPAY ==
[2023-07-28 12:37] LABS: Absolute Lymphocyte Count 1.82 X10^3/uL (0.83-4.51); Basophil# 0.08 X10^3/uL; Eosinophil# 0.28 X10^3/uL; Eosinophils% 3.6 % (0-5); Hematocrit 35.2 % (37-47); Hemoglobin 11.1 g/dL (12.0-15.0); Lymphocyte # 1.82 X10^3/ul (0.83-4.51); Lymphocyte % 23.3 % (19-41); Mean Corp Hgb Conc 31.5 g/dL (32-36); Mean Corpuscular Hgb 29.4 pg (27.0-32.0); Mean Corpuscular Volume 93.1 fL (81-99); Mean Platelet Vol. 9.5 fl (6.2-12.0); Monocyte# 0.62 X10^3/uL; Monocyte% 7.9 % (0-10); NRBC Flagged by Analyzer 0 % (0-5); Neutrophil # 4.98 X10^3/uL (2.7-7.7); Neutrophil % 63.8 % (47-70); Platelet Count 365 K/mm3 (150-450); RBC Distribution Width CV 13.2 % (11.6-14.6); RBC Distribution Width SD 45.1 fl (35.1-43.9); Red Blood Count 3.78 M/mm3 (4.2-5.4); White Blood Count 7.8 K/mm3 (4.4-11.0)
[2023-07-28 13:17] LABS: Vitamin D,25 Hydroxy 31.5 ng/mL
[2023-07-28 13:26] LABS: AST(SGOT) 23 U/L (15-37); Alanine Aminotransfer ALT/SGPT 26 U/L (13-56); Albumin, Serum 3.3 g/dL (3.2-5.0); Alkaline Phosphatase 71 U/L (45-117); Anion Gap 6 (5-15); BUN 10 mg/dL (7-18); Calcium,Total 8.6 mg/dL (8.5-10.1); Chloride 111 mmol/L (98-107); Cholesterol 125 mg/dL (200); Creatinine, Serum 0.84 mg/dL (0.55-1.02); EST Glomerular Filtration Rate 71 mL/min (>60); Est Glom Filt Rate - Afr Amer 86 mL/min (>60); Globulin 3.3 g/dL (2.2-4.2); Glucose 106 mg/dL (74-106); High Density Lipoprotein 56 mg/dL; Potassium 3.8 mmol/L (3.5-5.1); Protein, Total 6.6 g/dL (6.4-8.2); Sodium Level 144 mmol/L (136-145); Thyroid Stim Hormone (TSH) 1.36 uIU/mL (0.358-3.74); Triglycerides 95 mg/dL; Very Low Density Lipoprotein 19 mg/dL (5-40)
== END | disposition home or self-care (01) ==
LOC: BIMLAB 11:03
PROVIDERS: PCP Internal Medicine; Visit Provider Internal Medicine
DX: I10 Essential (primary) hypertension (principal); E03.9 Hypothyroidism, unspecified; M85.80 Other specified disorders of bone density and structure, unspecified site
CPT/HCPCS: 36415; 80053; 80061; 82306; 84443; 85025

== ENCOUNTER → 2023-08-18 | Outpatient (CLI) | payer MEDICARE, SELFPAY ==
--- OUTSIDE RECORDS SUMMARY | 2023-08-18 13:24 | XMS RPT_ITS | CCD ---
Author Name Unknown Address [address] [place] [id number] Organization [facility] Care Team Providers Care Curriculum Development Specialist Name Role Phone David Johnson MD Primary Care Provider Unava ilable DAVID JOHNSON Primary Care Unavailable JR WATSON JR Referring Unavailable JR WATSON JR Referring Unavailable DAVID JOHNSON Primary Care Unavailable DAVID JOHNSON Primary Care Unavailable DAIVD JOHNSON Referring Unavailable JR WATSON JR Attending Unavailable DAVID JOHNSON Primary Care Unavailable JR WATSON JR Attending Unavailable Allergies Allergy Classification Reported Allergen(s) Allergy Type Date of Onset Reaction(s) Facility (10 sources) Codeine; Translations: [CODEINE] Drug Allergy 12-27-2022 Unknown [facility] (10 sources) EPINEPHrine; Translations: [EPINEPHRINE] Drug Allergy 12-27-2022 Unknown [facility] (10 sources) Etodolac; Translations: [ETODOLAC] Drug Allergy 12-27-2022 Unknown [facility] (10 sources) Morphine; Translations: [MORPHINE] Drug Allergy 12-27-2022 Unknown [facility] Medications Current Medications Medication Drug Class(es) Dates Sig (Normalized) Sig (Original) CPAP/BIPAP/OTHER (5 sources) Start: 03-21-2023 End: 08-05-2050 CPAP/BIPAP/OTHER Auto titrating PAP device with humidification set at 7-15 cmH2O. Needs formal PAP mask fitting. Lifetime supplies. 1 Each 03/21/2023 08/05/2050 Active Completed/Discontinued Medications Medication Drug Class(es) Dates Sig (Normalized) Sig (Original) amLODIPine 5 mg / benazepril hydrochloride 20 mg oral capsule (8 sources) Dihydropyridine Calcium Channel Lon, Angiotensin Converting Enzyme Inhibitor take 1 capsule by mouth once daily amLODIPine-benaze pril (LOTREL) 5-20 mg per capsule Take 1 capsule by mouth once daily. 0 Active Problems Problem Classification Problem Date Documented Da te Episodic/Chronic Cardiac dysrhythmias (2 sources) Palpitations; Translations: [Palpitations] Onset: 05-17-2023 05-23-2023 Episodic Malaise and fatigue (3 sources) Malaise and fatigue; Translations: [Other malaise] Onset: 05-17-2023 05-17-2023 Episodic Other lower respiratory disease (1 source) Dyspnea on exertion; Translations: [Other forms of dyspnea] 05-23-2023 Episodic Other lower respiratory disease (1 source) Other forms of dyspnea; Translations: [BRITO (dyspnea on exertion)] Onset: 05-17-2023 Episodic Residual codes; unclassified (1 source) Hypersomnia; Translations: [Hypersomnia, unspecified] 03-15-2023 Chronic Residual codes; unclassified (2 sources) Obstructive sleep apnea syndrome; Translations: [Obstructive sleep apnea (adult) (pediatric)] 03-21-2023 Chronic Residual codes; unclassified (1 source) Hypersomnia, unspecified; Translations: [Hypersomnia] Onset: 03-13-2023 Chronic Residual codes; unclassified (1 source) Obstructive sleep apnea (adult) (pediatric); Translations: [COLE (obstructive sleep apnea)] Onset: 05-17-2023 Chronic Results Test Name Value Interpretation Reference Range Facil ity Encounters Encounter Date Encounter Type Care Provider Facility Start: 05-17-2023 End: 05-17-2023 ambulatory DAVID JOHNSON Facility:[facility] Start: 05-17-2023 End: 05-17-2023 ambulatory Jr Watson MD Work Phone: Sleep Procedures Date Procedure Procedure Detail Performing Clinician Start: 03-15-2023 Actigraphy testing recording analysis i&r Jr Watson MD Work Phone: Start: 08-12-2020 Lipid 1996 panel - S liam or Plasma Jr Watson Jr., MD Work Phone: Plan of Treatment Date Care Activity Detail Author Start: 08-12-2025 Lipid 1996 panel - S liam or Plasma Lipid Screening [facility] Start: 08-12-2025 LIPID SCREEN LIPID SCREEN [facility] Start: 04-08-2023 Influenza vaccination [facility] Start: 10-14-2022 COVID-19 VACCINE (6 - Moderna series) COVID-19 VACCINE (6 - Moderna series) [facility] Start: 08-08-2022 ADVANCE DIRECTIVE DISCUSSION ADVANCE DIRECTIVE DISCUSSION [facility] Start: 08-08-2022 DEPRESSION ASSESSMENT DEPRESSION ASS ESSMENT [facility] Start: 04-08-2022 Influenza vaccination INFLUENZA (#1) [facility] Start: 2015 BONE DENSITY BONE DENSITY [facility] Start: 2015 Bone Density Screening Bone Density Screening [facility] Start: 2015 Pneumococcal Vaccine : 65+ (1 - PCV) Pneumococcal Vaccine: 65+ (1 - PCV) [facility] Start: 2015 PNEUMOCOCCAL: 65+ (1 - PCV) PNEUMOCOCCAL: 65+ (1 - PCV) [facility] Start: 02-16-2000 SHINGRIX VACCINE (1 of 2) SHINGRIX V ACCINE (1 of 2) [facility] Start: 1995 COLOGUARD (FIT-DNA) COLOGUARD (FIT-D NA) [facility] Start: 1995 Colonoscopy COLONOSCOPY [facility] Start: 1995 COLORECTAL CANCER SCREENING COLORECTAL CANCER SCREENING [facility] Start: [address] COLONOGRAPHY [facility] Start: 1995 DIABETES SCREEN DIABETES SCREEN [facility] Start: 1995 Diabetes Screening Diabetes Screenin g [facility] Start: 1995 FECAL OCCULT BLOOD FECAL OCCULT BLOO D [facility] Start: 1995 LIPID SCREEN LIPID SCREEN [facility] Start: 1995 SIGMOIDOSCOPY SIGMOIDOSCOPY [facility] Start: 1990 Mammography [facility] Start: 1969 Urine microalbumin profile [facility] Start: 02-16-1968 HEPATITIS C SCREENING HEPATITIS C SC REENING [facility] Start: 1950 COVID-19 VACCINE (#1) COVID-19 VACCI NE (#1) [facility] Immunizations Immunization Date Immunization Notes Care Provider Fa cility 07-01-2021 influenza virus vacc ine, unspecified formulation Jr Watson Jr., MD Work Phone: [facility] Payers Date Payer Category Payer Medicare [facility] AARP MEDICAR E [facility] AARP MEDICARE HMO [id number] 2022-Present [phone] [address] [address] [place] [address] O [id number] 2022 Medicare [id number] Social History Date Type Detail Facility Tobacco smoking stat [facility] Tobacco smoking consumption unknown [facility] Start: 1950 Sex Assigned At Not on file [facility] Start: 12-23-2022 Tobacco smoking stat [facility] Ex-smoker [facility] End: 08-08-2009 History of tobacco use Current smoker [facility] End: 08-08-2009 History of tobacco use Cigarette Smoker [facility] History of tobacco use Passive smoker [facility] Start: 12-23-2022 Tobacco use and exposure Smokeless t obacco non-user [facility] Start: 12-27-2022 End: 05-17-2023 Alcohol intake Current drinker of alcohol (finding) [facility] Start: 12-23-2022 Alcohol Comment Holidays/speci al occasions only [facility] Start: 12-27-2022 End: 05-10-2023 History of Social function [facility] Start: 12-27-2022 End: 05-10-2023 Tobacco use panel [facility] National Score (1-10 0), lower number is lower risk 47 [facility] Clinical Notes 08-31-2022 to 05-17-2023 Patient InstructionsJr Watson Jr., MD - 05/17/2023 11:20 AM EDTTelephone Encounter - Malena Burgess LPN - 05/02/2023 9:37 AM Joan Ross, PhD - 03/15/2023 8:24 PM EDT Note Date & Type Note Facility 05-17-2023 Note HNO ID: [id number] Author: Jr Watson Jr., MD Service: ? Author Type: Physician Type: Progress Notes Filed: 05/23/2023 11:01 PM Note Text: [facility] Virtual Visit Follow up/ Established patient visit Date of last visit : Visit date not found I have communicated my name and active licensure. The patient's identity and physical location were verified at the time of this visit. Either the patient or their legal door to door sales representative has been informed of the risks and benefits of -- and alternatives to -- treatment through a remote evaluation and consents to proceed with the evaluation remotely. 73 year old female with PMH Allergic rhinitis, Anxiety, Asthma, Chronic sinusitis, Depression, Deviated nasal septum, GERD, Hypertension, Brain aneurysm x3 s/p coiling, Hypothyroidism a history of snoring, waking up choking, gasping, waking up with dry mouth or sore throat, excessive daytime sleepiness, fatigue, and daytime napping diagnosed with severe COLE here for follow up Split 2022: The apnea-hypopnea index (AHI) was 59.2, the respiratory disturbance index (RDI) was 59.2,The supine AHI was 59.2. The off-supine AHI was 0.0. The REM AHI was 0.0. The non-REM AHI was 59.2 and the arousal index was 25.1. The mean oxygen saturation was 92.0%, with a minimum oxygen saturation of 83.0%. At a PAP setting of 10 cmH2O, during which REM sleep was recorded while off-supine, the apnea-hypopnea and arousal indices were normalized, snoring was eliminated, and the oxygen saturation was maintained above 93%. The supine related AHI was not absolutely normalized during this study, with sleep recorded while supine on a PAP setting of 9 cmH2O (AHI was 14.5 while supine). Today: Wake up: 11am Still sleep 1-2 in pm Up for 1-1.5 hours before has to take nap Lasts till 3pm 3-6pm nap again 6-11pm awake Bedtime 11pm KEISHA within minutes Sharper cognitively after 3 week of use however daughter still reports fatigue, feels B.P is on lower side and heart palpitations TTE 2022: stage 1 DD, no records of EKG, stress test SLEEP APNEA Sleep apnea type : COLE, Most Recent Apnea-Hypopnea Index (AHI): 59.2 Treatment : PAP therapy DME: [employer] PAP History: Uses AutoPAP for 8 hours per night, 7/7 nights per week. Current PAP settin-15 cm H2O. Difficulties with CPAP: None Reviewed objective PAP compliance data: yes 89% compliance residual AHI 2.5 Mask type: full face mask Mask issues: none Uses chin strap: No Uses ramp function: Yes, Protocol: 4 Uses humidity: Yes, Protocol: 2 There is a perceived benefit by the patient: sharper cognitively Observers report abolition of snoring with CPAP use. --- PATIENT-ENTERED QUESTIONNAIRE SLEEP SCORES Sleep Questions 05/10/2023 Reason for visit: Sleep apnea Average hours slept in 24 hours: 14 Average hours of CPAP per night: 11 Percent of nights CPAP used at least 4 hours: 28 Accidents or near accidents due to drowsy drivin [place] Sleepiness Scale 05/10/2023 Score 4 (No daytime sleepiness) PROMIS CAT Sleep Disturbance 05/10/2023 PROMIS Sleep Disturbance T-Score 55 (within normal limits) PROMIS Sleep Disturbance Percentile 31 % Insomnia Severity Index 05/10/2023 Score 14 PHQ-9 05/10/2023 Score 12 PROMIS Global Health - (T-Scores - the mean of general population = 50. Five points is a clinically meaningful difference.) 05/10/2023 Physical T-Score 42.3 Mental T-Score 36.3 ALLERGIES Allergen Reactions Codeine Unknown Epinephrine Unknown Lodine [Etodolac] Unknown Morphine Unknown CURRENT MEDICATIONS: amLODIPine-benazepril (LOTREL) 5-20 mg per capsule Take 1 capsule by mouth once daily. atorvastatin (LIPITOR) 20 mg tablet Take 20 mg by mouth once daily. CPAP/BIPAP/OTHER Auto titrating PAP device with humidification set at 7-15 cmH2O. Needs formal PAP mask fitting. Lifetime supplies. FLUoxetine (PROZAC) 40 mg capsule Take 40 mg by mouth once daily. FLUTICASONE PROPIONATE INHALATION Inhale as instructed. levothyroxine 50 mcg cap Take 50 mcg by mouth daily before breakfast. metoprolol tartrate, short acting, (LOPRESSOR) 25 mg tablet Take 25 mg by mouth once daily. omeprazole (PRILOSEC) 20 mg capsule Take 20 mg by mouth as needed. propylene glycoL (SYSTANE BALANCE) 0.6 % drop Use 1 Drop in both eyes as needed. umeclidinium (INCRUSE ELLIPTA) 62.5 mcg/actuation inhaler Inhale 1 Puff as instructed once daily. Prior Hypersomnia/Narcolepsy Medications (20 years) Some values may be hidden. Unless noted otherwise, only the newest values recorded on each date are displayed. Hypersomnia/Narcolepsy Medications No data to display. IMPRESSION/PLAN: Cole (obstructive sleep apnea) (primary encounter diagnosis) Malaise and fatigue 73 year old female with PMH Allergic rhinitis (more content not included)... [facility] 05-17-2023 Instructions Arlene Crump MD - 05/17/2023 11:46 AM EDT Please follow up with PCP-cardiology and lab tests Follow up in 3 months Continue PAP Therapy - Continue Auto CPAP at 7-15 cmH2O. - Remember to clean your mask and equipment regularly, as directed. - You should be eligible for new supplies approximately every 3-6 months, depending on your insurance coverage. Contact your Durable Medical Equipment (DME) company for new supplies as needed. - Follow up in [address] Watson[address] [facility] Requirements - Your insurance requires a [id number] follow up visit within a 31-90 day period after starting CPAP. - Your insurance requires compliance with CPAP, which is at least 4 hours per night for 70% of the time. This must be done over a 30 day period and must occur within the initial 31-90 day period after starting CPAP. - Your insurance also requires at least yearly follow ups to continue to pay for CPAP supplies. PAP Supply Guidelines Below are the guidelines for reordering your supplies. You will be responsible for your deductible, co-payments, and out of pocket expenses. Item Medicare & Commercial Insurance Medicaid & HCAP Nasal Mask (no headgear) 1 every 3 months 1 per year Nasal Mask Cushion 1 every month 2 per year Full Face Mask (no headgear) 1 every 3 months 1 per year Full Face Mask Cushion 1 every month *Self-Pay Nasal Pillows 2 every month 2 per year Headgear 1 every 6 months 1 per year Chin Strap 1 every 6 months 2 per year Tubing 1 every 3 months 1 per year Filters: Reusable 1 every 6 months 4 per year Filters: Disposable 2 every month 1 per month Humidifier Chamber(disposable) 1 every 6 months *Self-Pay Criteria for surgical implantation of INSPIRE 1) Moderate to Severe sleep apnea (AHI 20-60) 2) Intolerant of CPAP (consistently tried to use nighty for at least 3 months) 3) BMI< 32 4) Medically stable If the above criteria are met, the next step is a sleep endoscopy (DISE) to see if the anatomy of the airway is predominantly tongue base collapse; meaning that INSPIRE would work. For further information see the website below [email or web address] documented in this encounter [facility] 05-17-2023 History of Presen t illness Narrative Images from the original note were not included. [facility] Virtual Visit Follow up/ Established patient visit Date of last visit : Visit date not found I have communicated my name and active licensure. The patient's identity and physical location were verified at the time of this visit. Either the patient or their legal door to door sales representative has been informed of the risks and benefits of -- and alternatives to -- treatment through a remote evaluation and consents to proceed with the evaluation remotely. 73 year old female with PMH Allergic rhinitis, Anxiety, Asthma, Chronic sinusitis, Depression, Deviated nasal septum, GERD, Hypertension, Brain aneurysm x3 s/p coiling, Hypothyroidism a history of snoring, waking up choking, gasping, waking up with dry mouth or sore throat, excessive daytime sleepiness, fatigue, and daytime napping diagnosed with severe COLE here for follow up 2022: The apnea-hypopnea index (AHI) was 59.2, the respiratory disturbance index (RDI) was 59.2,The supine AHI was 59.2. The off-supine AHI was 0.0. The REM AHI was 0.0. The non-REM AHI was 59.2 and the arousal index was 25.1. The mean oxygen saturation was 92.0%, with a minimum oxygen saturation of 83.0%. At a PAP setting of 10 cmH2O, during which REM sleep was recorded while off-supine, the apnea-hypopnea and arousal indices were normalized, snoring was eliminated, and the oxygen saturation was maintained above 93%. The supine related AHI was not absolutely normalized during this study, with sleep recorded while supine on a PAP setting of 9 cmH2O (AHI was 14.5 while supine). Today: Wake up: 11am Still sleep 1-2 in pm Up for 1-1.5 hours before has to take nap Lasts till 3pm 3-6pm nap again 6-11pm awake Bedtime 11pm KEISHA within minutes Sharper cognitively after 3 week of use however daughter still reports fatigue, feels B.P is on lower side and heart palpitations TTE 2022: stage 1 DD, no records of EKG, stress test SLEEP APNEA Sleep apnea type : COLE, Most Recent Apnea-Hypopnea Index (AHI): 59.2 Treatment : PAP therapy DME: [employer] PAP History: Uses AutoPAP for 8 hours per night, 7/7 nights per week. Current PAP settin-15 cm H2O. Difficulties with CPAP: None Reviewed objective PAP compliance data: yes 89% compliance residual AHI 2.5 Mask type: full face mask Mask issues: none Uses chin strap: No Uses ramp function: Yes, Protocol: 4 Uses humidity: Yes, Protocol: 2 There is a perceived benefit by the patient: sharper cognitively Observers report abolition of snoring with CPAP use. PATIENT-ENTERED QUESTIONNAIRE SLEEP SCORES Sleep Questions 05/10/2023 Reason for visit: Sleep apnea Average hours slept in 24 hours: 14 Average hours of CPAP per night: 11 Percent of nights CPAP used at least 4 hours: 28 Accidents or near accidents due to drowsy drivin [place] Sleepiness Scale 05/10/2023 Score 4 (No daytime sleepiness) PROMIS CAT Sleep Disturbance 05/10/2023 PROMIS Sleep Disturbance T-Score 55 (within normal limits) PROMIS Sleep Disturbance Percentile 31 % Insomnia Severity Index 05/10/2023 Score 14 PHQ-9 05/10/2023 Score 12 PROMIS Global Health - (T-Scores - the mean of general population = 50. Five points is a clinically meaningful difference.) 05/10/2023 Physical T-Score 42.3 Mental T-Score 36.3 ALLERGIES Allergen Reactions Codeine Unknown Epinephrine Unknown Lodine [Etodolac] Unknown Morphine Unknown CURRENT MEDICATIONS: amLODIPine-benazepril (LOTREL) 5-20 mg per capsule Take 1 capsule by mouth once daily. atorvastatin (LIPITOR) 20 mg tablet Take 20 mg by mouth once daily. CPAP/BIPAP/OTHER Auto titrating PAP device with humidification set at 7-15 cmH2O. Needs formal PAP mask fitting. Lifetime supplies. FLUoxetine (PROZAC) 40 mg capsule Take 40 mg by mouth once daily. FLUTICASONE PROPIONATE INHALATION Inhale as instructed. levothyroxine 50 mcg cap Take 50 mcg by mouth daily before breakfast. metoprolol tartrate, short acting, (LOPRESSOR) 25 mg tablet Take 25 mg by mouth once daily. omeprazole (PRILOSEC) 20 mg capsule Take 20 mg by mouth as needed. propylene glycoL (SYSTANE BALANCE) 0.6 % drop Use 1 Drop in both eyes as needed. umeclidinium (INCRUSE ELLIPTA) 62.5 mcg/actuation inhaler Inhale 1 Puff as instructed once daily. Prior Hypersomnia/Narcolepsy Medications (20 years) Some values may be hidden. Unless noted otherwise, only the newest values recorded on each date are displayed. Hypersomnia/Narcolepsy Medications No data to display. IMPRESSION/PLAN: Cloe (obstructive sleep apnea) (primary encounter diagnosis) Malaise and fatigue 73 year old female with PMH Allergic rhinitis, Anxiety, Asthma, Chronic sinusitis, Depression, Deviated nasal septum, GERD, Hypertension, Brain aneurysm x3 s/p coiling, Hypothyroidism a history of snoring, waking up choking, gasping, waking up with dry mouth or sore throat, excessive daytime sleepiness, fatigue, and daytime napping diagnosed with severe COLE here for follow up Excellent CPAP compliance, no leaks and residual AHI controlled, ESS 4 however per daughter still with fatigue-we believe this is multifactorial- more time may be needed with CPAP, it would be pertinent to r/o other cardiovascular abnormalities given stage 1 DD and screening for underling arrythmia given patients concern with palpitations/hypotension, along with screening for hypothyrodism, anemia and routine cancer screening will cc PCP In interim continue autopap [id number], reviewed [facility] PAP supply guidelines Follow up in 3 months Plan discussed with attending physician Dr. Walter Crump MD Sleep Medicine Fellow [facility] STAFF PHYSICIAN NOTE OF PERSONAL INVOLVEMENT IN CARE I have reviewed the progress note obtained and documented by Arlene Crump MD and I personally participated in the leach components. I have discussed the case and management of the patient's care. The following comments revise or confirm relevant leach components of the note. For this virtual visit, the patient has been identified by name and (MRN and photo identification as well if available). Those taking part in visit: Patient, physician and sleep fellow. Consent for this visit received from patient. I have communicated my name and active licensure. The patient's identity and physical location ([place]) were verified at the time of this visit. The patient has been informed of the risks and benefits of -- and alternatives to -- treatment through a remote evaluation and consents to proceed with the evaluation remotely. Patient presents for COLE follow up. Known seere COLE as determined by PSG; AHI of 59.2. Started on Auto PAP with excellent compliance as above, as well as normalization of AHI - both subjective and objective compliance confirmed as well as perceived benefit. Residual AHI on PAP is 0.2. Both cognition and EDS improved since on PAP therapy. Sleep Questionnaire Data Depression Screening 05/10/2023 PHQ-2 Score 2 PHQ-9 Score 12 PED PHQ-9 05/10/2023 Little interest or pleasure in doing things More than half the days Feeling down, depressed, or hopeless Not at all Trouble falling or staying asleep, or sleeping too much Nearly every day Feeling tired or having little energy Nearly every day Poor appetite or overeating More than half the days Feeling bad about yourself - or that you are a failure or have let yourself or your family down Several days Trouble concentrating on things, such as reading the newspaper or watching television Not at all Moving or speaking so slowly that other people could have noticed. Or the opposite - being so fidgety or restless that you have been moving around a lot more than usual Not at all Thoughts that you would be better off , or of hurting yourself in some way Several days If you checked off any problems, how difficult have these problems made it for you to do your work, take care of things at home, or get along with other people? Extremely difficult PHQ-9 Score 12 (Moderate Depression) [place] Sleepiness Scale 05/10/2023 Score 4 (No daytime sleepiness) Insomnia Severity Index 05/10/2023 Score 14 Typically sleeping from 11PM to 11AM. Pushes herself to do things during day, but not endorsing sleepiness (ESS was only 4) but rather fatigue. Also reports SOB at rest and BRITO. At this point, feel COLE is well controlled and no other definite sleep issues at this time. Agree with plan as documented above. Again, would not recommend use of wake promoting agent or stimulant given other med history including cerebral aneurysm, and furthermore not endorsing sleepiness but rather fatigue. Recommend additional med workup for other possible causes of fatigue including cardiac disorder given palpitations and BRITO as well as other ddx as noted by Dr. Crump. Follow up 3 months or sooner prn. Jr Watson MD I spent a total of 25 minutes on the date of the service which included preparing to see the patient, [id number] patient care, completing clinical documentation, obtaining and/or reviewing separately obtained history, performing a medically appropriate examination, counseling and educating the patient/family/caregiver, communicating with other HCPs (not separately reported), independently interpreting results (not separately reported), and communicating results to the patient/family/caregiver (results include PAP data download). documented in this encounter [facility] 05-02-2023 Miscellaneous Notes Spoke with [employer] and requested pap download Waiting for report to be faxed Malena Burgess LPN documented in this encounter [facility] 04-06-2023 Miscellaneous Notes Pt read message at 12:42 PM on 04/06/2023. Nothing further at this time. Fatuma Deal LPN documented in this encounter [facility] 03-23-2023 Miscellaneous Notes Lenard returned called. Let nurse Radha know that we had [place] the [place] [facility] and they will be contacting her for supplies. Fatuma Deal LPN TC to number provided. Staff not available. Left detailed message to return call. Fatuma Deal LPN Per review of encounters, these were already ordered. Jr Watson MD Dr Johnson RN Cassidy called today stating patient is asking for her Sleep apnea supplies be order . She stated she was told she had to wait for the follow up appointment. They are wanting to know 1) can the supplies be ordered before her follow up appointment 2) Is he going to manage the supplies or does Dr Johnson need to - if so they would like a copy of the Sleep study Results. Cassidy would like a call back for clarification. Cassidy can be reached at [phone]. Thank you! Cheryl Maldonado documented in this encounter [facility] 03-22-2023 Miscellaneous Notes PAP therapy orders and required documentation [place]ed [place] [facility] at [phone]. Nothing further at this time. ADINA Thompson Sent MC message to let pt know Dr. Watson will prescribe machine. And asked for DME company preference. Fatuma Deal LPN documented in this encounter [facility] 03-15-2023 Note HNO ID: [id number] Author: Joan lSoan, PhD Service: ? Author Type: Psychologist Type: Procedures Filed: 03/15/2023 8:34 PM Note Text: Actigraphy Report Results: Actigraphy/sleep diary was performed for 10 days prior to MSLT. My impression based on above is adequate sleep duration prior to MSLT. (10.8 hrs) Average Bedtime 10:47PM, with a range of 9:50PM to 11:30PM. Average Wake time 11:106AM , with a range of 10:24AM to 11:49AM. Average Total Sleep Time 10.8 hrs Significant Variability in Sleep-Wake Schedule No Naps 10 Average Nap Duration 96 min Circadian Rhythm Delayed (slightly late bedtimes; very late wake times). Procedure: Actigraphy (CPT code 30478) Reason for study: hypersomnia-MSLT planned Length of study: This study was performed for: 10 days Dates of Actigraphy study: From 03/01/2023 To 03/12/2023 Technical quality of the recording: An Actigraphy GTX was used for this study. There were no apparent technical issues with the recording. All data were used in sleep scoring and analysis Using the David Kripke algorithm, fran was extrapolated manually to determine sleep episodes. 1. Recorded variables extrapolated from the Actigraphy and sleep log a. Bedtime (Clock time attempted to fall asleep based on actigraphy log) b. Wake time: Clock time of final awakening in the morning based on actigraphy (reported In hours or minutes). For most individuals, this will take place at night; however, For some (e.g., shift workers) it may not. c. Time in bed (TIB): Duration between reported bedtime and wake time 2. Actigraphy variables a. Sleep onset: Clock time individual fell asleep as determined by the actigraph based on the sleep-scoring algorithm or hand-scoring rules. b. Sleep offset: Clock time individual woke up as determined by the actigraph based on the sleep-scoring algorithm or hand-scoring rules. c. Sleep period: Duration between sleep onset and sleep offset (reported in hours or minutes). d. Total sleep time (TST): Duration of sleep during the major sleep period (reported in hours or minutes). e. Total wake time (TWT): Duration of wake during the major sleep period (reported in hours or minutes). The sum of TST and TWT should equal the sleep period. f. Sleep efficiency (SE) or sleep percent: There are a number of ways in which SE is computed, and it differs across devices; however, the variable of interest is the proportion of time the patient is asleep out of the total time in bed. Sleep efficiency should technically only be calculated when reported variables are available (providing the TIB). Sleep percent, on the other hand, provides the percent of time the individual is asleep during the actigraphically scored in-bed period. Interpretation: The actigraphy recording spans 10 days including 3 weekend days. Sleep diary was obtained along this recording. Patient sleep diary mostly matches with actigraphy recording. Bedtimes and wake-up times were determined from the sleep diary/automatic rest periods. Bedtimes mostly regular for the majority of the recording with an average bedtime of 10:47PM, with a range of 9:50PM to 11:30PM. Wake up times mostly regular for the majority of recording with the average wake up time of 11:06AM , with a range of 10:24AM to 11:49AM. Patient had an averaged sleep time of 10.8 hours per night. Estimated sleep efficiency was not reduced ( 87 %). Activity was increased during the rest period and WASO time was 89 minutes on average. Naps were recorded. Naps occurred 10 times during the recording, occurred between 2:36PM AND 7:11PM and were on average 96 min in duration. There were 2 periods of low level activity observed on 03/04 AND 03.06. Patient did not indicate napping on sleep diary. Clinical correlation is advised. The circadian rhythm appears slightly delayed (slightly later bedtimes; much later wake times) My impression based on above is long sleep times of 10.8 hours, increased wake after sleep onset , frequent napping, and adequate sleep duration prior to MSLT. [place] : Joan Sloan, PhD, [facility] Psychologist ([place] License [id number]) Behavioral Sleep Medicine Disclosure: There are limitations of actigraphy data. This test is not a measure of daytime sleepiness or insomnia. Findings may suggest the etiology of sleepiness due to an observed pattern or help in the understanding of patterns associated with conditions being evaluated [facility] 03-15-2023 Procedure note Associated Ord er(s): ACTIGRAPHY TESTING Actigraphy Report Results: Actigraphy/sleep diary was performed for 10 days prior to MSLT. My impression based on above is adequate sleep duration prior to MSLT. (10.8 hrs) Average Bedtime 10:47PM, with a range of 9:50PM to 11:30PM. Average Wake time 11:106AM , with a range of 10:24AM to 11:49AM. Average Total Sleep Time 10.8 hrs Significant Variability in Sleep-Wake Schedule No Naps 10 Average Nap Duration 96 min Circadian Rhythm Delayed (slightly late bedtimes; very late wake times). Procedure: Actigraphy (CPT code 58424) Reason for study: hypersomnia-MSLT planned Length of study: This study was performed for: 10 days Dates of Actigraphy study: From 03/01/2023 To 03/12/2023 Technical quality of the recording: An Actigraphy GTX was used for this study. There were no apparent technical issues with the recording. All data were used in sleep scoring and analysis Using the David Kripke algorithm, fran was extrapolated manually to determine sleep episodes. 1. Recorded variables extrapolated from the Actigraphy and sleep log a. Bedtime (Clock time attempted to fall asleep based on actigraphy log) b. Wake time: Clock time of final awakening in the morning based on actigraphy (reported In hours or minutes). For most individuals, this will take place at night; however, For some (e.g., shift workers) it may not. c. Time in bed (TIB): Duration between reported bedtime and wake time 2. Actigraphy variables a. Sleep onset: Clock time individual fell asleep as determined by the actigraph based on the sleep-scoring algorithm or hand-scoring rules. b. Sleep offset: Clock time individual woke up as determined by the actigraph based on the sleep-scoring algorithm or hand-scoring rules. c. Sleep period: Duration between sleep onset and sleep offset (reported in hours or minutes). d. Total sleep time (TST): Duration of sleep during the major sleep period (reported in hours or minutes). e. Total wake time (TWT): Duration of wake during the major sleep period (reported in hours or minutes). The sum of TST and TWT should equal the sleep period. f. Sleep efficiency (SE) or sleep percent: There are a number of ways in which SE is computed, and it differs across devices; however, the variable of interest is the proportion of time the patient is asleep out of the total time in bed. Sleep efficiency should technically only be calculated when reported variables are available (providing the TIB). Sleep percent, on the other hand, provides the percent of time the individual is asleep during the actigraphically scored in-bed period. Interpretation: The actigraphy recording spans 10 days including 3 weekend days. Sleep diary was obtained along this recording. Patient sleep diary mostly matches with actigraphy recording. Bedtimes and wake-up times were determined from the sleep diary/automatic rest periods. Bedtimes mostly regular for the majority of the recording with an average bedtime of 10:47PM, with a range of 9:50PM to 11:30PM. Wake up times mostly regular for the majority of recording with the average wake up time of 11:06AM , with a range of 10:24AM to 11:49AM. Patient had an averaged sleep time of 10.8 hours per night. Estimated sleep efficiency was not reduced ( 87 %). Activity was increased during the rest period and WASO time was 89 minutes on average. Naps were recorded. Naps occurred 10 times during the recording, occurred between 2:36PM & 7:11PM and were on average 96 min in duration. There were 2 periods of low level activity observed on 03/04 & 03.06. Patient did not indicate napping on sleep diary. Clinical correlation is advised. The circadian rhythm appears slightly delayed (slightly later bedtimes; much later wake times) My impression based on above is long sleep times of 10.8 hours, increased wake after sleep onset , frequent napping, and adequate sleep duration prior to MSLT. [place] : Joan Sloan, PhD, [facility] Psychologist ([place] License [id number]) Behavioral Sleep Medicine Disclosure: There are limitations of actigraphy data. This test is not a measure of daytime sleepiness or insomnia. Findings may suggest the etiology of sleepiness due to an observed pattern or help in the understanding of patterns associated with conditions being evaluated documented in this encounter [facility] 03-15-2023 Miscellaneous Notes Scheduled pt a follow up appointment virtually with Dr. Watson to go over sleep study results. Fatuma Deal LPN Offered a virtual appointment with Dr. Watson. Sent message confirming. Fatuma Deal LPN documented in this encounter [facility] 03-14-2023 Note HNO ID: [id number] Author: Lisa Ulloa Service: ? Author Type: ? Type: Progress Notes Filed: 03/14/2023 10:04 AM Note Text: The patient did not meet the criteria to have the MSLT. Her AHI was > 15. The daytime study was canceled. [facility] 03-14-2023 Note HNO ID: [id number] Author: Derek Wild Service: ? Author Type: ? Type: Progress Notes Filed: 03/14/2023 3:59 AM Note Text: Sleep Study Check-In Documentation Date: March 14, 2023 Name: Claudette Manzo Patient was accompanied by Self. Location: IC Latex allergy: No Tape allergy: No Current medications were reviewed with the patient:Yes Sleep aid taken by patient for the sleep study: Merino of sleep aid: Not Applicable Procedure was explained to the patient and all questions were answered. PAP treatment discussed and shown to patient: Yes If PAP used enter mask info: Mask Name Delfina Pro Make Resperonics MaskType Gel Pillows Mask Size Small Chin Sharp Used No Knowledge Program (KP): KP was not completed in epic by patient and accepted Study type: Split Study-Polysomnogram with CPAP titration Adverse Event: No (If yes create a new abstract) Comments: Patient was advised to follow up with their ordering provider regarding test results Derek Mooney Poly-T [facility] 02-28-2023 Note HNO ID: [id number] Author: Lizzy Danielson Service: ? Author Type: ? Type: Progress Notes Filed: 03/15/2023 8:34 PM Note Text: ACTIGRAPHY DEVICE # [id number] Date shipped out 02/28/2023 [employer] MAIL OUT TRACKING NUMBER [phone] [employer] RETURN TRACKING NUMBER [phone] [id number], Mariadel [facility] 02-28-2023 History of Presen t illness Narrative ACTIGRAPHY DEVICE # [id number] Date shipped out 02/28/2023 [employer] MAIL OUT TRACKING NUMBER [phone] [employer] RETURN TRACKING NUMBER [phone] [id number], Mariadel documented in this encounter [facility] 01-31-2023 Miscellaneous Notes The pt was contacted in regards to medications that may alter MSLT test results. The medication includes Prozac. The pt did not answer. A VM was left instructing them to reach out to Dr. Watson in regards to medication adjustments, and to not make any changes d/t this call. documented in this encounter [facility] 12-27-2022 Note HNO ID: [id number] Author: Jr Watson Jr., MD Service: ? Author Type: Physician Type: Progress Notes Filed: 12/27/2022 11:38 AM Note Text: NEW PATIENT (CONSULT) HISTORY AND PHYSICAL EXAM PRIMARY CARE PHYSICIAN: David Johnsno MD REASON FOR CONSULT: Excessive sleepiness REFERRING PHYSICIAN: David Johnson MD CHIEF COMPLAINT: Always tired Consultation requested by David Johnson MD for an opinion regarding chief complaint of Patient presents with: New Patient Evaluation and my final recommendations will be communicated back to the requesting physician by way of shared medical record or letter via [place] mail. HISTORY OF PRESENT ILLNESS: Claudette Manzo is a 72 year old female, with past medical history as below. States sleeps 15 hours per night yet still tired and even taking 2 hours of naps per day. Need for sleep has greatly impacted life. Symptoms started about 3 years ago. as well as siblings just prior to onset of symptoms. No physical trauma. No other known provoking factors. Primary care thought patient may be overmedicated per pt and thus reduced BP meds. Pt goes to bed about 10-11PM. Falls asleep immediately. Wakes a couple times per night. Only up for minutes. Pt does snore at night but not always. No history of nocturia. Patient does not wake up until 11AM to 2PM in the afternoon. Occasional dry mouth in the AM. No AM headaches. Feels like slept but takes an hour to wake up. First nap is in about 3 hours after waking. If tries to push through without taking a nap states she gets shaky and short of breath. States she does have vivid dreams nightly but one recurring theme in which she is in the process of moving and tells her he is in love with another woman. No kicking or behaviors noted during the night including no parasomnias or dream enactment. Does not recall dreams during naps. One nap per day for 2 hours. Most tired in the AM and more alert in evening. Pt with history of COVID, but symptoms prior to that. Pt with distant history of sleep study - years ago. Pt does not recall why they did that study. History of 3 cerebral aneurysms - 1 that is coiled in the front of head and 2 in the back of the head. States these were recently checked at [facility] when pt presented with stroke like symptoms. These records not available for review. Per pt, workup negative for neuro etiology but later dx'd with COVID. Thyroid labs unremarkable. No OTC supplements. 1994 total hysterectomy. Prior cardiac workups showing no arrhythmia, and stress and ECHOs in past was unremarkable per pt. REVIEW OF SYSTEMS GENERAL:No weight loss, malaise or fevers. HEENT:Negative for frequent or significant headaches, No changes in hearing or vision, no nose bleeds or other nasal problems NECK:Negative for lumps, goiter, pain and significant neck swelling RESPIRATORY: BRITO. CARDIOVASCULAR: Negative for chest pain, leg swelling or palpitations. GASTROINTESTINAL: Negative for abdominal discomfort, blood in stools or black stools or change in bowel habits GENITOURINARY: No history of dysuria, frequency or incontinence MUSCULOSKELETAL: Negative for joint pain or swelling, back pain or muscle pain. NEUROLOGIC:Negative for focal numbness or weakness, headaches and dizziness or syncope, vision changes, speech/language changes, changes in gait or falls -- besides those complaints as above in HPI. SKIN:Negative for lesions, rash, and itching. PSYCHIATRIC: See HPI. HEMATOLOGIC/LYMPHATIC/IMMUNOLOG IC:Negative for prolonged bleeding, bruising easily or swollen nodes. ENDOCRINE: Negative for cold or heat intolerance, polyuria, polydipsia and goiter. The remainder of the ROS was reviewed and is negative. LAB/IMAGING: Reviewed and include: See Care Everywhere for labs reviewed. MEDICATIONS: Current Outpatient Medications Medication Sig Dispense Refill amLODIPine-benazepril (LOTREL) 5-20 mg per capsule Take 1 capsule by mouth once daily. atorvastatin (LIPITOR) 20 mg tablet Take 20 mg by mouth once daily. FLUoxetine (PROZAC) 40 mg capsule Take 40 mg by mouth once daily. FLUTICASONE PROPIONATE INHALATION Inhale as instructed. levothyroxine 50 mcg cap Take 50 mcg by mouth daily before breakfast. metoprolol tartrate, short acting, (LOPRESSOR) 25 mg tablet Take 25 mg by mouth once daily. omeprazole (PRILOSEC) 20 mg capsule Take 20 mg by mouth as needed. propylene glycoL (SYSTANE BALANCE) 0.6 % drop Use 1 Drop in both eyes as needed. umeclidinium (INCRUSE ELLIPTA) 62.5 mcg/actuation inhaler Inhale 1 Puff as instructed once daily. No current facility-administered medications for this visit. HISTORIES PAST MEDICAL HISTORY Diagnosis Date Acquired hypothyroidism Anemia Benign intracranial hypertension Brain aneurysm Cataract Chronic neck and back pain Essential hypertension Bert's disease History of breast cancer H (more content not included)... [facility] 08-31-2022 Miscellaneous Notes Received fax referral for sleep: Dr. Watson with patient preference scheduling at [facility]. DX: Hypersomnia, unspecified. Records given to Amy. Christy Parish MA documented in this encounter [facility] Diagnosis Obstructive sleep apnea (adult) (pediatric)- [facility] Diagnosis COLE (obstructive sleep apnea)- Primary Obstructive sleep apnea (adult) (pediatric) Malaise and fatigue Other malaise and fatigue BRITO (dyspnea on exertion) [R06.09] Other dyspnea and respiratory abnormality Palpitations [R00.2] Palpitations documented in this encounter [facility] Summary Purpose Family History No Family History Records FoundNo Family History Records Found Advance Directives No Advanced Directives Records FoundNo Advanced Directives Records Found Additional Source Comments Source Comments (unrecognize d section and content) In the event this informatio n is protected by the Federal Confidentiality of Alcohol and Drug Abuse Patient Records regulations: The Federal rules restrict any use of the information to criminally investigate or prosecute any alcohol or drug abuse patient.[facility] the event this information is protected by the Federal Confidentiality of Alcohol and Drug Abuse Patient Records regulations: The Federal rules restrict any use of the information to criminally investigate or prosecute any alcohol or drug abuse patient.[facility] the event this information is protected by the Federal Confidentiality of Alcohol and Drug Abuse Patient Records regulations: The Federal rules restrict any use of the information to criminally investigate or prosecute any alcohol or drug abuse patient.[facility] the event this information is protected by the Federal Confidentiality of Alcohol and Drug Abuse Patient Records regulations: The Federal rules restrict any use of the information to criminally investigate or prosecute any alcohol or drug abuse patient.[facility] the event this information is protected by the Federal Confidentiality of Alcohol and Drug Abuse Patient Records regulations: The Federal rules restrict any use of the information to criminally investigate or prosecute any alcohol or drug abuse patient.[facility] the event this information is protected by the Federal Confidentiality of Alcohol and Drug Abuse Patient Records regulations: The Federal rules restrict any use of the information to criminally investigate or prosecute any alcohol or drug abuse patient.[facility] the event this information is protected by the Federal Confidentiality of Alcohol and Drug Abuse Patient Records regulations: The Federal rules restrict any use of the information to criminally investigate or prosecute any alcohol or drug abuse patient.[facility] the event this information is protected by the Federal Confidentiality of Alcohol and Drug Abuse Patient Records regulations: The Federal rules restrict any use of the information to criminally investigate or prosecute any alcohol or drug abuse patient.[facility] the event this information is protected by the Federal Confidentiality of Alcohol and Drug Abuse Patient Records regulations: The Federal rules restrict any use of the information to criminally investigate or prosecute any alcohol or drug abuse patient.[facility] Reason for Visit (unrecogniz ed section and content) Reason Comments Medication Question The pt was contacted in regards to medications that may alter MSLT test results. Reason Comments Patient Question Reason Comments cpap compliance Reason Comments Established Patient Sleep Apnea Care Teams (unrecognized sec tion and content) Curriculum Development Specialist Relationship Specialty Start Date End Date David Johnson MD NO FORWARDING ADDRESS PCP - General Internal Medicine 08/31/22 Curriculum Development Specialist Relationship Specialty Start Date End Date David Johnson MD NO FORWARDING ADDRESS PCP - General Internal Medicine 08/31/22 Curriculum Development Specialist Relationship Specialty Start Date End Date David Johnson MD NO FORWARDING ADDRESS PCP - General Internal Medicine 08/31/22 Curriculum Development Specialist Relationship Specialty Start Date End Date David Johnson MD NO FORWARDING ADDRESS PCP - General Internal Medicine 08/31/22 Curriculum Development Specialist Relationship Specialty Start Date End Date David Johnson MD NO FORWARDING ADDRESS PCP - General Internal Medicine 08/31/22 INFORMATION SOURCE (unrecogn ized section and content) DATE CREATED AUTHOR AUTHOR'S MICKI ATION 05/25/2023 [facility] FOR RECORDS PERTAINING TO PATIENTS WHO ARE OR HAVE BEEN ENROLLED IN A CHEMICAL DEPENDENCY/SUBSTANCEABUSE PROGRAM, SOME INFORMATION MAY BE OMITTED. This clinical summary was aggregated from multiple sources. Caution should be exercised in using it in the provision of clinical care. This summary normalizes information from multiple sources, and as a consequence, information in this document may materially change the coding, format and clinical context of patient data. In addition, data may be omitted in some cases. CLINICAL DECISIONS SHOULD BE BASED ON THE PRIMARY CLINICAL RECORDS. [employer] provides no warranty or guarantee of the accuracy or completeness of information in this document.
--- NOTE | 2023-08-19 12:19 | PFT ---
INTRODUCTION: The patient is a 73-year-old female who presents for pulmonary function studies secondary to a diagnosis of shortness of breath. Respiratory therapy reported good patient effort. Bronchodilators were used during testing. INTERPRETATION: Forced expiration spirometry demonstrated no evidence of a large airways obstructive ventilatory defect. There was no significant response to aerosolized bronchodilators. Body plethysmography was performed and revealed lung volumes to be within normal limits. Diffusing capacity by single breath CO was mildly reduced at 64% of predicted. IMPRESSION: Isolated mild reduction in diffusing capacity.
== END | disposition home or self-care (01) ==
PROVIDERS: PCP Internal Medicine; Referring Provider Internal Medicine Critical Care Medicine; Visit Provider Internal Medicine Critical Care Medicine
DX: F17.211 Nicotine dependence, cigarettes, in remission (principal); R06.02 Shortness of breath
CPT/HCPCS: 94060; 94726; 94729

== ENCOUNTER → 2023-09-01 | Outpatient (CLI) | payer MEDICARE, SELFPAY ==
--- OUTSIDE RECORDS SUMMARY | 2023-09-01 09:06 | XMS RPT_ITS | CCD ---
Author Name Unknown Address [address] [place] [id number] Organization [facility] Care Team Providers Care Arc Welder Apprentice Name Role Phone David Johnson MD Primary Care Provider Unava ilable DAVID JOHNSON Primary Care Unavailable JR WATSON JR Referring Unavailable RJ WATSON JR Referring Unavailable DAVID JOHNSON Primary Care Unavailable DAVID JOHNSON Primary Care Unavailable DAVID JOHNSON Referring Unavailable JR WATSON JR Attending Unavailable DAVID JOHNSON Primary Care Unavailable JR WATSON JR Attending Unavailable Allergies Allergy Classification Reported Allergen(s) Allergy Type Date of Onset Reaction(s) Facility (10 sources) Codeine; Translations: [CODEINE] Drug Allergy 12-27-2022 Unknown [facility] (10 sources) EPINEPHrine; Translations: [EPINEPHRINE] Drug Allergy 12-27-2022 Unknown [facility] (10 sources) Etodolac; Translations: [ETODOLAC] Drug Allergy 12-27-2022 Unknown [facility] (10 sources) Morphine; Translations: [MORPHINE] Drug Allergy 12-27-2022 Unknown [facility] Medications Current Medications Medication Drug Class(es) Dates [...] Start: 05-17-2023 End: 05-17-2023 ambulatory DAVID JOHNSON Facility:[facility] Start: 05-17-2023 End: 05-17-2023 ambulatory Jr Watson MD Work Phone: Sleep Procedures Date Procedure Procedure Detail Performing Clinician Start: 03-15-2023 Actigraphy testing recording analysis i&r rJ Watson MD Work Phone: Start: 08-12-2020 Lipid 1996 panel - S liam or Plasma Jr Watson Jr., MD Work Phone: Plan of Treatment Date Care Activity Detail Author Start: 08-12-2025 Lipid 1996 panel - S liam or Plasma Lipid Screening [facility] Start: 08-12-2025 LIPID SCREEN LIPID SCREEN [facility] Start: 04-08-2023 Influenza vaccination C [facility] Start: 10-14-2022 COVID-19 VACCINE (6 - Moderna series) COVID-19 VACCINE (6 - Moderna series) [facility] Start: 08-08-2022 ADVANCE DIRECTIVE DISCUSSION ADVANCE DIRECTIVE DISCUSSION [facility] Start: 08-08-2022 DEPRESSION ASSESSMENT DEPRESSION ASS ESSMENT [facility] Start: 04-08-2022 Influenza vaccination INFLUENZA (#1) [facility] Start: 2015 BONE DENSITY BONE DENSITY [facility] Start: 2015 Bone Density Screening Bone Density Screening [facility] Start: 2015 Pneumococcal Vaccine : 65+ (1 - PCV) Pneumococcal Vaccine: 65+ (1 - PCV) [facility] Start: 2015 PNEUMOCOCCAL: 65+ (1 - PCV) PNEUMOCOCCAL: 65+ (1 - PCV) [facility] Start: 02-16-2000 SHINGRIX VACCINE (1 of 2) SHINGRIX V ACCINE (1 of 2) [facility] Start: 1995 COLOGUARD (FIT-DNA) COLOGUARD (FIT-D NA) [facility] Start: 1995 Colonoscopy COLONOSCOPY [facility] Start: 1995 COLORECTAL CANCER SCREENING COLORECTAL CANCER SCREENING [facility] Start: [address] COLONOGRAPHY [facility] Start: 1995 DIABETES SCREEN DIABETES SCREEN [facility] Start: 1995 Diabetes Screening Diabetes Screenin g [facility] Start: 1995 FECAL OCCULT BLOOD FECAL OCCULT BLOO D [facility] Start: 1995 LIPID SCREEN LIPID SCREEN [facility] Start: 1995 SIGMOIDOSCOPY SIGMOIDOSCOPY [facility] Start: 1990 Mammography [facility] Start: 1969 Urine microalbumin profile [facility] Start: 02-16-1968 HEPATITIS C SCREENING HEPATITIS C SC REENING [facility] Start: 1950 COVID-19 VACCINE (#1) COVID-19 VACCI NE (#1) [facility] Immunizations Immunization Date Immunization Notes Care Provider Fa cility 07-01-2021 influenza virus vacc ine, unspecified formulation Jr Watson Jr., MD Work Phone: [facility] Payers Date Payer Category Payer Medicare [facility] AARP MEDICAR E [facility] AARP MEDICARE HMO [id number] 2022-Present [phone] [address] [address] [place] [address] O [id number] 2022 Medicare [id number] Social History Date Type Detail Facility Tobacco smoking stat [facility] Tobacco smoking consumption unknown [facility] Start: 1950 Sex Assigned At Not on file C [facility] Start: 12-23-2022 Tobacco smoking stat [facility] Ex-smoker [facility] End: 08-08-2009 History of tobacco use Current smoker [facility] End: 08-08-2009 History of tobacco use Cigarette Smoker [facility] History of tobacco use Passive smoker [facility] Start: 12-23-2022 Tobacco use and exposure Smokeless t obacco non-user [facility] Start: 12-27-2022 End: 05-17-2023 Alcohol intake Current drinker of alcohol (finding) [facility] Start: 12-23-2022 Alcohol Comment Holidays/speci al occasions only [facility] Start: 12-27-2022 End: 05-10-2023 History of Social function [facility] Start: 12-27-2022 End: 05-10-2023 Tobacco use panel [facility] National Score (1-10 0), lower number is lower risk 47 [facility] Clinical Notes 08-31-2022 to 05-17-2023 Patient InstructionsJr Watson Jr., MD - 05/17/2023 11:20 AM EDTTelephone Encounter - Malena Burgess LPN - 05/02/2023 9:37 AM Joan Ross, PhD - 03/15/2023 8:24 PM EDT Note Date & Type Note Facility 05-17-2023 Note HNO ID: [id number] Author: Jr Watson Jr., MD Service: ? Author Type: Physician Type: Progress Notes Filed: 05/23/2023 11:01 PM Note Text: [facility] Virtual Visit Follow up/ Established patient visit Date of last visit : Visit date not found I have communicated my name and active licensure. The patient's identity and physical location were verified at the time of this visit. Either the patient or their legal passenger service representative has been informed of the risks [...] or near accidents due to drowsy drivin Clayton Sleepiness Scale 05/10/2023 Score 4 (No daytime [...] PMH Allergic rhinitis (more content not included)... [facility] 05-17-2023 Instructions Arlene Crump MD - 05/17/2023 [...] up in [address] Watson[address] [facility] Requirements - Your insurance requires a [id number] follow up visit within a 31-90 day [...] For further information see the website below [email or web address] documented in this encounter [facility] 05-17-2023 History of Presen t illness Narrative Images from the original note were not included. [facility] Virtual Visit Follow up/ Established patient visit Date of last visit : Visit date not found I have communicated my name and active licensure. The patient's identity and physical location were verified at the time of this visit. Either the patient or their legal passenger service representative has been informed of the risks [...] (AHI): 59.2 Treatment : PAP therapy DME: [facility] PAP History: Uses AutoPAP for 8 hours [...] or near accidents due to drowsy drivin [place] Sleepiness Scale 05/10/2023 Score 4 (No daytime [...] will cc PCP In interim continue autopap [id number], reviewed [facility] PAP supply guidelines Follow up in 3 months Plan discussed with attending physician Dr. Walter Crump MD Sleep Medicine Fellow [facility] STAFF PHYSICIAN NOTE OF PERSONAL INVOLVEMENT IN [...] licensure. The patient's identity and physical location ([place]) were verified at the time of this [...] Extremely difficult PHQ-9 Score 12 (Moderate Depression) Clayton Sleepiness Scale 05/10/2023 Score 4 (No daytime sleepiness) Insomnia Severity Index 05/10/2023 Score 14 Typically sleeping from 11PM to 11AM. Pushes herself to do things during day, but not endorsing sleepiness (ESS was only 4) but rather fatigue. Also reports SOB at rest and RBITO. At this point, feel COLE is well [...] which included preparing to see the patient, [id number] patient care, completing clinical documentation, obtaining and/or reviewing separately obtained history, performing a medically appropriate examination, counseling and educating the patient/family/caregiver, communicating with other HCPs (not separately reported), independently interpreting results (not separately reported), and communicating results to the patient/family/caregiver (results include PAP data download). documented in this encounter [facility] 05-02-2023 Miscellaneous Notes Spoke with DASCO and requested pap download Waiting for report to be faxed Malena Burgess LPN documented in this encounter [facility] 04-06-2023 Miscellaneous Notes Pt read message at 12:42 PM on 04/06/2023. Nothing further at this time. Fatuma Deal LPN documented in this encounter [facility] 03-23-2023 Miscellaneous Notes Lenard returned called. Let nurse Radha know that we had sent the orders to [facility] and they will be contacting her for [...] for clarification. Cassidy can be reached at [phone]. Thank you! Cheryl Maldonado documented in this encounter [facility] 03-22-2023 Miscellaneous Notes PAP therapy orders and required documentation faxed to [facility] at [phone]. Nothing further at this time. ADINA Thompson Sent [facility] message to let pt know Dr. Watson will prescribe machine. And asked for DME company preference. Fatuma Deal LPN documented in this encounter [facility] 03-15-2023 Note HNO ID: [id number] Author: Joan Sloan, PhD Service: ? Author Type: Psychologist Type: [...] late wake times). Procedure: Actigraphy (CPT code 33529) Reason for study: hypersomnia-MSLT planned Length of [...] and adequate sleep duration prior to MSLT. [place] : Joan Sloan, PhD, [facility] Psychologist ([place] License [id number]) Behavioral Sleep Medicine Disclosure: There are limitations of actigraphy data. This test is not a measure of daytime sleepiness or insomnia. Findings may suggest the etiology of sleepiness due to an observed pattern or help in the understanding of patterns associated with conditions being evaluated [facility] 03-15-2023 Procedure note Associated Ord er(s): ACTIGRAPHY [...] late wake times). Procedure: Actigraphy (CPT code 56777) Reason for study: hypersomnia-MSLT planned Length of [...] and adequate sleep duration prior to MSLT. [place] : Joan Sloan, PhD, [facility] Psychologist ([place] License [id number]) Behavioral Sleep Medicine Disclosure: There are limitations of actigraphy data. This test is not a measure of daytime sleepiness or insomnia. Findings may suggest the etiology of sleepiness due to an observed pattern or help in the understanding of patterns associated with conditions being evaluated documented in this encounter [facility] 03-15-2023 Miscellaneous Notes Scheduled pt a follow up appointment virtually with Dr. Watson to go over sleep study results. Fatuma Deal LPN Offered a virtual appointment with Dr. Watson. Sent message confirming. Fatuma Deal LPN documented in this encounter [facility] 03-14-2023 Note HNO ID: [id number] Author: Lisa Ulloa Service: ? Author Type: ? Type: Progress Notes Filed: 03/14/2023 10:04 AM Note Text: The patient did not meet the criteria to have the MSLT. Her AHI was > 15. The daytime study was canceled. [facility] 03-14-2023 Note HNO ID: [id number] Author: Derek Wild Service: ? Author Type: ? Type: Progress Notes Filed: 03/14/2023 3:59 AM Note Text: Sleep Study Check-In Documentation Date: March 14, 2023 Name: Claudette Manzo Patient was accompanied by Self. Location: IC Latex allergy: No Tape allergy: No Current medications were reviewed with the patient:Yes Sleep aid taken by patient for the sleep study: Gandy of sleep aid: Not Applicable Procedure was [...] provider regarding test results Derek Mooney Poly-T [facility] 02-28-2023 Note HNO ID: [id number] Author: Lizzy Danielson Service: ? Author Type: ? Type: Progress Notes Filed: 03/15/2023 8:34 PM Note Text: ACTIGRAPHY DEVICE # [id number] Date shipped out 02/28/2023 [employer] MAIL OUT TRACKING NUMBER [phone] [employer] RETURN TRACKING NUMBER [phone] [id number], Mariadel [facility] 02-28-2023 History of Presen t illness Narrative ACTIGRAPHY DEVICE # [id number] Date shipped out 02/28/2023 [employer] MAIL OUT TRACKING NUMBER [phone] [employer] RETURN TRACKING NUMBER [phone] [id number], [place]adel documented in this encounter [facility] 01-31-2023 Miscellaneous Notes The pt was contacted in regards to medications that may alter MSLT test results. The medication includes Prozac. The pt did not answer. A VM was left instructing them to reach out to Dr. Watson in regards to medication adjustments, and to not make any changes d/t this call. documented in this encounter [facility] 12-27-2022 Note HNO ID: [id number] Author: Jr Watson Jr., MD Service: ? Author Type: Physician Type: Progress Notes Filed: 12/27/2022 11:38 AM Note Text: NEW PATIENT (CONSULT) HISTORY AND PHYSICAL EXAM PRIMARY CARE PHYSICIAN: David Johnson MD REASON FOR CONSULT: Excessive sleepiness REFERRING [...] head. States these were recently checked at [facility] when pt presented with stroke like symptoms. [...] breast cancer H (more content not included)... [facility] 08-31-2022 Miscellaneous Notes Received fax referral for sleep: Dr. Watson with patient preference scheduling at [facility]. DX: Hypersomnia, unspecified. Records given to Amy. Christy Parish MA documented in this encounter [facility] Diagnosis Obstructive sleep apnea (adult) (pediatric)- Primary [facility]* Diagnosis COLE (obstructive sleep apnea)- Primary Obstructive sleep apnea (adult) (pediatric) Malaise and fatigue Other malaise and fatigue BRITO (dyspnea on exertion) [R06.09] Other dyspnea and respiratory abnormality Palpitations [R00.2] Palpitations documented in this encounter [facility] Summary Purpose Family History No Family History [...] or prosecute any alcohol or drug abuse patient.[facility] the event this information is protected by the Federal Confidentiality of Alcohol and Drug Abuse Patient Records regulations: The Federal rules restrict any use of the information to criminally investigate or prosecute any alcohol or drug abuse patient.[facility] the event this information is protected by the Federal Confidentiality of Alcohol and Drug Abuse Patient Records regulations: The Federal rules restrict any use of the information to criminally investigate or prosecute any alcohol or drug abuse patient.[facility] the event this information is protected by the Federal Confidentiality of Alcohol and Drug Abuse Patient Records regulations: The Federal rules restrict any use of the information to criminally investigate or prosecute any alcohol or drug abuse patient.[facility] the event this information is protected by the Federal Confidentiality of Alcohol and Drug Abuse Patient Records regulations: The Federal rules restrict any use of the information to criminally investigate or prosecute any alcohol or drug abuse patient.[facility] the event this information is protected by the Federal Confidentiality of Alcohol and Drug Abuse Patient Records regulations: The Federal rules restrict any use of the information to criminally investigate or prosecute any alcohol or drug abuse patient.[facility] the event this information is protected by the Federal Confidentiality of Alcohol and Drug Abuse Patient Records regulations: The Federal rules restrict any use of the information to criminally investigate or prosecute any alcohol or drug abuse patient.[facility] the event this information is protected by the Federal Confidentiality of Alcohol and Drug Abuse Patient Records regulations: The Federal rules restrict any use of the information to criminally investigate or prosecute any alcohol or drug abuse patient.[facility] the event this information is protected by the Federal Confidentiality of Alcohol and Drug Abuse Patient Records regulations: The Federal rules restrict any use of the information to criminally investigate or prosecute any alcohol or drug abuse patient.[facility] Reason for Visit (unrecogniz ed section and content) Reason Comments Medication Question The pt was contacted in regards to medications that may alter MSLT test results. Reason Comments Patient Question Reason Comments cpap compliance Reason Comments Established Patient Sleep Apnea Care Teams (unrecognized sec tion and content) Arc Welder Apprentice Relationship Specialty Start Date End Date David Johnson MD NO FORWARDING ADDRESS PCP - General Internal Medicine 08/31/22 Arc Welder Apprentice Relationship Specialty Start Date End Date David Johnson MD [place] FORWARDING ADDRESS PCP - General Internal Medicine 08/31/22 Arc Welder Apprentice Relationship Specialty Start Date End Date David Johnson MD NO FORWARDING ADDRESS PCP - General Internal Medicine 08/31/22 Arc Welder Apprentice Relationship Specialty Start Date End Date David Johnson MD [place] FORWARDING ADDRESS PCP - General Internal Medicine 08/31/22 Arc Welder Apprentice Relationship Specialty Start Date End Date David Johnson MD [place] FORWARDING ADDRESS PCP - General Internal Medicine 08/31/22 INFORMATION SOURCE (unrecogn ized section and content) DATE CREATED AUTHOR AUTHOR'S MICKI ATION 05/25/2023 [facility] FOR RECORDS PERTAINING TO PATIENTS WHO [...] BE BASED ON THE PRIMARY CLINICAL RECORDS. [employer] provides no warranty or guarantee of the accuracy or completeness of information in this document.
[2023-09-01 09:39] VITALS: PULSE 100; PULSE 104; PULSE 79; PULSE 85; PULSE 92; PULSE 95; O2SAT 95; O2SAT 96; O2SAT 98; O2SAT 99
--- NOTE | 2023-09-01 09:44 | CPS ---
NEAR THE END OF 6 MIN WALK TESTING, PT'S HAND BECAME SLIGHTLY SHAKY AND CLAMMY. SHE HAD FLEETING DIZZINESS UPON FINISHING LAST LAP. SHE ADMITTED TO NOT HAVING ANYTHING OTHER THAN COFFEE PRIOR TO TESTING. AFTER PLACING PATIENT IN A CHAIR, I PROVIDED HER 2 OJ'S TO DRINK AND A BOTTLE OF WATER. SYMPTOMS RESOLVED WITH REST AND HYDRATION. SHE DENIED NEED FOR ANY REST BREAKS DURING TESTING, AND AMBULATED 826FT ON ROOM AIR. SHE HAD INCREASED WOB DURING TESTING, ESPECIALLY WITH CONVERSATION, WHICH RESOLVED WITH REST. PT DC'D WITHOUT INCIDENT.
--- NOTE | 2023-09-01 12:36 | WT_ITS ---
PSN 6 Minute Walk Test 6 Minute Walk Test 6 Minute Walk Test: 6 Minute Walk Test PSN:6-Minute Walk Test Start: 09/01/23 09:39 Freq: Status: Active Protocol: RESP.6MINW Document 09/01/23 09:39 [facility] (Rec: 09/01/23 09:49 [facility] [id number]) 6 Minute Walk Test Date Performed 09/01/23 Time Performed 09:00 Height 5 ft 2 in Weight: 163 lb Weight in Pounds 163.[address]: Pino Garcia Assistive device used: None Pre-test Oxygen Delivery Method Room Air Pulse Ox 98 Pulse Rate (60-100) 85 Dyspnea Devan Scale (0-10) 0 1st minute Oxygen Delivery Method Room Air Pulse Ox 98 Pulse Rate (60-100) 92 Dyspnea Devan Scale (0-10) 0 Number of Rests Taken 0 2nd minute Oxygen Delivery Method Room Air Pulse Ox 95 Pulse Rate (60-100) 95 Dyspnea Devan Scale (0-10) 2 Number of Rests Taken 0 Reported Symptoms Increased Work of Breathing 3rd minute Oxygen Delivery Method Room Air Pulse Ox 96 Pulse Rate (60-100) 104 H Dyspnea Devan Scale (0-10) 3 Number of Rests Taken 0 Reported Symptoms Increased Work of Breathing 4th minute Oxygen Delivery Method Room Air Pulse Ox 98 Pulse Rate (60-100) 100 Dyspnea Devan Scale (0-10) 3 Number of Rests Taken 0 Reported Symptoms Increased Work of Breathing 5th minute Oxygen Delivery Method Room Air Pulse Ox 98 Pulse Rate (60-100) 104 H Dyspnea Devan Scale (0-10) 3 Number of Rests Taken 0 Reported Symptoms Increased Work of Breathing 6th minute Oxygen Delivery Method Room Air Pulse Ox 98 Pulse Rate (60-100) 100 Dyspnea Devan Scale (0-10) 3 Number of Rests Taken 0 Reported Symptoms Increased Work of Breathing, Dizziness Post-test Oxygen Delivery Method Room Air Pulse Ox 99 Pulse Rate (60-100) 79 Dyspnea Devan Scale (0-10) 0 Full Laps Walked 14 Partial Lap, Number of Tiles Walked 0 Total Distance Walked (ft) 826 09/01/23 09:44 Cardiopulmonary Services by Fina Dumont NEAR THE END OF 6 MIN WALK TESTING, PT'S HAND BECAME SLIGHTLY SHAKY AND CLAMMY. SHE HAD FLEETING DIZZINESS UPON FINISHING LAST LAP. SHE ADMITTED TO NOT HAVING ANYTHING OTHER THAN COFFEE PRIOR TO TESTING. AFTER PLACING PATIENT IN A CHAIR, I PROVIDED HER 2 OJ'S TO DRINK AND A BOTTLE OF WATER. SYMPTOMS RESOLVED WITH REST AND HYDRATION. SHE DENIED NEED FOR ANY REST BREAKS DURING TESTING, AND AMBULATED 826FT ON ROOM AIR. SHE HAD INCREASED WOB DURING TESTING, ESPECIALLY WITH CONVERSATION, WHICH RESOLVED WITH REST. PT DC'D WITHOUT INCIDENT. Initialized on 09/01/23 09:44 - END OF NOTE Interpretation Interpretation: The patient ambulated 826 feet over the course of 6 minutes beginning on room air without assistive devices. Pretesting oxygen saturation was noted to be 98% on room air. With ambulation, the jeanette oxygen saturation was 95%. There was no significant exertional oxygen desaturation. Recommendations Recommendations: There is no indication for the use of supplemental oxygen at this time.
== END | disposition home or self-care (01) ==
LOC: PSN 08:28
PROVIDERS: PCP Internal Medicine; Referring Provider Internal Medicine Critical Care Medicine; Visit Provider Internal Medicine Critical Care Medicine
DX: F17.211 Nicotine dependence, cigarettes, in remission (principal); R06.02 Shortness of breath
CPT/HCPCS: 94618

== ENCOUNTER → 2023-09-02 | Outpatient (CLI) | payer MEDICARE, SELFPAY ==
--- NOTE | 2023-09-02 11:43 | BI_ITS ---
MAMMOGRAPHY - BILATERAL SCREENING REASON FOR EXAM: Female, 73 years old. Routine annual screening examination. PERTINENT HISTORY: Personal history of breast cancer. Prior right lumpectomy with radiation and chemotherapy. Remote left excisional breast biopsy. TECHNIQUE: Digital bilateral breast marimar (3D mammographic acquisition) in the CC and MLO projections. 2-D mediolateral oblique (MLO) and craniocaudad (CC) views of both breasts were obtained. CAD: Full Field Digital Mammography with Computer Added Detection was performed. COMPARISON: Comparison is made with prior study dated August 19, 2022. FINDINGS: Breast Composition: There are scattered areas of fibroglandular density. There are no dominant masses or suspicious calcifications. Once again, the patient is status post lumpectomy in the upper lateral portion of the right breast. Surgical clips are also seen in the right axilla. No other significant abnormalities are identified. There has been no significant change since the prior study. BI/SCRN MAMM (CAD)W/MARIMAR BILAT IMPRESSION: Stable bilateral screening mammogram. Yearly follow-up mammogram recommended. (A) ASSESSMENT CATEGORY: BIRADS Category 2: Benign. A letter regarding these results will be sent to the patient by the facility within 30 days. Approximately 10% of breast cancers are not detected by mammography. A normal mammogram should not delay biopsy of a clinically suspicious abnormality. [id number] Electronically Signed: Gregory Carrington MD at 12:46 EST ,
--- OUTSIDE RECORDS SUMMARY | 2023-09-02 12:11 | XMS RPT_ITS | CCD ---
Author Name Unknown Address [address] [place] [id number] Organization [facility] Care Team Providers Care Rotary Adjuster Name Role Phone David Johnson MD Primary Care Provider Unava ilable DAVID JOHNSON Primary Care Unavailable JR WATSON JR Referring Unavailable JR WATSON JR Referring Unavailable DAVID JOHNSON Primary Care Unavailable DAVID JOHNSON Primary Care Unavailable DAVID JOHNSON Referring Unavailable JR WATSON JR Attending Unavailable DAVID JOHNSON Primary Care Unavailable JR WATOSN JR Attending Unavailable Allergies Allergy Classification Reported Allergen(s) Allergy Type Date of Onset Reaction(s) Facility (10 sources) Codeine; Translations: [CODEINE] Drug Allergy 12-27-2022 Unknown [facility] (10 sources) EPINEPHrine; Translations: [EPINEPHRINE] Drug Allergy 12-27-2022 Unknown [facility] (10 sources) Etodolac; Translations: [ETODOLAC] Drug Allergy 12-27-2022 Unknown [facility] (10 sources) Morphine; Translations: [MORPHINE] Drug Allergy 12-27-2022 Unknown [facility] Medications Current Medications Medication Drug Class(es) [...] Start: 05-17-2023 End: 05-17-2023 ambulatory DAVID JOHNSON Facility:[facility] Start: 05-17-2023 End: 05-17-2023 ambulatory Jr Watson [...] - S liam or Plasma Lipid Screening [facility] Start: 08-12-2025 LIPID SCREEN LIPID SCREEN [facility] Start: 04-08-2023 Influenza vaccination C [facility] Start: 10-14-2022 COVID-19 VACCINE (6 - Moderna series) COVID-19 VACCINE (6 - Moderna series) [facility] Start: 08-08-2022 ADVANCE DIRECTIVE DISCUSSION ADVANCE DIRECTIVE DISCUSSION [facility] Start: 08-08-2022 DEPRESSION ASSESSMENT DEPRESSION ASS ESSMENT [facility] Start: 04-08-2022 Influenza vaccination INFLUENZA (#1) [facility] Start: 2015 BONE DENSITY BONE DENSITY [facility] Start: 2015 Bone Density Screening Bone Density Screening [facility] Start: 2015 Pneumococcal Vaccine : 65+ (1 - PCV) Pneumococcal Vaccine: 65+ (1 - PCV) [facility] Start: 2015 PNEUMOCOCCAL: 65+ (1 - PCV) PNEUMOCOCCAL: 65+ (1 - PCV) [facility] Start: 02-16-2000 SHINGRIX VACCINE (1 of 2) SHINGRIX V ACCINE (1 of 2) [facility] Start: 1995 COLOGUARD (FIT-DNA) COLOGUARD (FIT-D NA) [facility] Start: 1995 Colonoscopy COLONOSCOPY [facility] Start: 1995 COLORECTAL CANCER SCREENING COLORECTAL CANCER SCREENING [facility] Start: [address] COLONOGRAPHY [facility] Start: 1995 DIABETES SCREEN DIABETES SCREEN [facility] Start: 1995 Diabetes Screening Diabetes Screenin g [facility] Start: 1995 FECAL OCCULT BLOOD FECAL OCCULT BLOO D [facility] Start: 1995 LIPID SCREEN LIPID SCREEN [facility] Start: 1995 SIGMOIDOSCOPY SIGMOIDOSCOPY [facility] Start: 1990 Mammography [facility] Start: 1969 Urine microalbumin profile [facility] Start: 02-16-1968 HEPATITIS C SCREENING HEPATITIS C SC REENING [facility] Start: 1950 COVID-19 VACCINE (#1) COVID-19 VACCI NE (#1) [place] Immunizations Immunization Date Immunization Notes Care Provider Fa cility 07-01-2021 influenza virus vacc ine, unspecified formulation Jr Watson Jr., MD Work Phone: [facility] Payers Date Payer Category Payer Medicare [facility] AARP MEDICAR E [facility] AARP MEDICARE HMO [id number] 2022-Present [phone] [address] [address] [place] [address] O [id number] 2022 Medicare [id number] Social History Date Type Detail Facility Tobacco smoking stat [facility] Tobacco smoking consumption unknown [facility] Start: 1950 Sex Assigned At Not on file C [facility] Start: 12-23-2022 Tobacco smoking stat [facility] Ex-smoker [facility] End: 08-08-2009 History of tobacco use Current smoker [facility] End: 08-08-2009 History of tobacco use Cigarette Smoker [facility] History of tobacco use Passive smoker [facility] Start: 12-23-2022 Tobacco use and exposure Smokeless t obacco non-user [facility] Start: 12-27-2022 End: 05-17-2023 Alcohol intake Current drinker of alcohol (finding) [facility] Start: 12-23-2022 Alcohol Comment Holidays/speci al occasions only [facility] Start: 12-27-2022 End: 05-10-2023 History of Social function [facility] Start: 12-27-2022 End: 05-10-2023 Tobacco use panel [facility] National Score (1-10 0), lower number is lower risk 47 [facility] Clinical Notes 08-31-2022 to 05-17-2023 Patient InstructionsJr Watson Jr., MD - 05/17/2023 11:20 AM EDTTelephone Encounter - Malena Burgess LPN - 05/02/2023 9:37 AM Joan Ross, PhD - 03/15/2023 8:24 PM EDT Note Date & Type Note Facility 05-17-2023 Note HNO ID: [id number] Author: Jr Watson Jr., MD Service: ? Author Type: Physician Type: Progress Notes Filed: 05/23/2023 11:01 PM Note Text: [facility] Virtual Visit Follow up/ Established patient visit Date of last visit : Visit date not found I have communicated my name and active licensure. The patient's identity and physical location were verified at the time of this visit. Either the patient or their legal patient portal representative has been informed of the risks [...] or near accidents due to drowsy drivin [place] Sleepiness Scale 05/10/2023 Score 4 (No daytime [...] PMH Allergic rhinitis (more content not included)... [facility] 05-17-2023 Instructions Arlene Crump MD - [...] up in [address] [facility] Requirements - Your insurance requires a [id number] follow up visit within a 31-90 day [...] For further information see the website below [email or web address] documented in this encounter [facility] 05-17-2023 History of Presen t illness Narrative Images from the original note were not included. [facility] Virtual Visit Follow up/ Established patient visit Date of last visit : Visit date not found I have communicated my name and active licensure. The patient's identity and physical location were verified at the time of this visit. Either the patient or their legal patient portal representative has been informed of the risks [...] (AHI): 59.2 Treatment : PAP therapy DME: [employer] PAP History: Uses AutoPAP for 8 hours [...] or near accidents due to drowsy drivin [place] Sleepiness Scale 05/10/2023 Score 4 (No daytime [...] will cc PCP In interim continue autopap [id number], reviewed [facility] PAP supply guidelines Follow up in 3 months Plan discussed with attending physician Dr. Walter Crump MD Sleep Medicine Fellow [facility] STAFF PHYSICIAN NOTE OF PERSONAL INVOLVEMENT IN [...] licensure. The patient's identity and physical location ([place]) were verified at the time of this [...] Extremely difficult PHQ-9 Score 12 (Moderate Depression) [place] Sleepiness Scale 05/10/2023 Score 4 (No daytime [...] which included preparing to see the patient, [id number] patient care, completing clinical documentation, obtaining and/or reviewing separately obtained history, performing a medically appropriate examination, counseling and educating the patient/family/caregiver, communicating with other HCPs (not separately reported), independently interpreting results (not separately reported), and communicating results to the patient/family/caregiver (results include PAP data download). documented in this encounter [facility] 05-02-2023 Miscellaneous Notes Spoke with [facility] and requested pap download Waiting for report to be faxed Malena Burgess LPN documented in this encounter [facility] 04-06-2023 Miscellaneous Notes Pt read message at 12:42 PM on 04/06/2023. Nothing further at this time. Fatuma Deal LPN documented in this encounter [facility] 03-23-2023 Miscellaneous Notes Lenard returned called. Let nurse Radha know that we had sent the orders to [facility] and they will be [...] for clarification. Cassidy can be reached at [phone]. Thank you! Cheryl Maldonado documented in this encounter [facility] 03-22-2023 Miscellaneous Notes PAP therapy orders and required documentation faxed to [facility] at [phone]. Nothing further at this time. ADINA Thompson Sent [facility] message to let pt know Dr. Watson will prescribe machine. And asked for DME company preference. Fatuma Deal LPN documented in this encounter [facility] 03-15-2023 Note HNO ID: [id number] Author: Joan Sloan, PhD Service: ? Author [...] late wake times). Procedure: Actigraphy (CPT code 88745) Reason for study: hypersomnia-MSLT planned Length of [...] and adequate sleep duration prior to MSLT. Meta : Joan Sloan, PhD, [facility] Psychologist ([place] License [id number]) Behavioral Sleep Medicine Disclosure: There are limitations of actigraphy data. This test is not a measure of daytime sleepiness or insomnia. Findings may suggest the etiology of sleepiness due to an observed pattern or help in the understanding of patterns associated with conditions being evaluated [facility] 03-15-2023 Procedure note Associated Ord er(s): ACTIGRAPHY [...] late wake times). Procedure: Actigraphy (CPT code 68561) Reason for study: hypersomnia-MSLT planned Length of [...] and adequate sleep duration prior to MSLT. Meta : Joan Sloan, PhD, [facility] Psychologist ([place] License [id number]) Behavioral Sleep Medicine Disclosure: There are limitations of actigraphy data. This test is not a measure of daytime sleepiness or insomnia. Findings may suggest the etiology of sleepiness due to an observed pattern or help in the understanding of patterns associated with conditions being evaluated documented in this encounter [facility] 03-15-2023 Miscellaneous Notes Scheduled pt a follow up appointment virtually with Dr. Watson to go over sleep study results. Fatuma Deal LPN Offered a virtual appointment with Dr. Watson. Sent message confirming. Fatuma Deal LPN documented in this encounter [facility] 03-14-2023 Note HNO ID: [id number] Author: Lisa Ulloa Service: ? Author Type: ? Type: Progress Notes Filed: 03/14/2023 10:04 AM Note Text: The patient did not meet the criteria to have the MSLT. Her AHI was > 15. The daytime study was canceled. [facility] 03-14-2023 Note HNO ID: [id number] Author: Derek Wild Service: ? Author Type: ? Type: Progress Notes Filed: 03/14/2023 3:59 AM Note Text: Sleep Study Check-In Documentation Date: March 14, 2023 Name: Claudette Manzo Patient was accompanied by Self. Location: IC Latex allergy: No Tape allergy: No Current medications were reviewed with the patient:Yes Sleep aid taken by patient for the sleep study: [place] of sleep aid: Not Applicable Procedure was [...] provider regarding test results Derek Mooney Poly-T [facility] 02-28-2023 Note HNO ID: [id number] Author: Lizzy Danielson Service: ? Author Type: ? Type: Progress Notes Filed: 03/15/2023 8:34 PM Note Text: ACTIGRAPHY DEVICE # [id number] Date shipped out 02/28/2023 [employer] MAIL OUT TRACKING NUMBER [phone] [employer] RETURN TRACKING NUMBER [phone] [id number], [place] [facility] 02-28-2023 History of Presen t illness Narrative ACTIGRAPHY DEVICE # [id number] Date shipped out 02/28/2023 [employer] MAIL OUT TRACKING NUMBER [phone] [employer] RETURN TRACKING NUMBER [phone] [id number], [place] documented in this encounter [facility] 01-31-2023 Miscellaneous Notes The pt was contacted in regards to medications that may alter MSLT test results. The medication includes Prozac. The pt did not answer. A VM was left instructing them to reach out to Dr. Watson in regards to medication adjustments, and to not make any changes d/t this call. documented in this encounter [facility] 12-27-2022 Note HNO ID: [id number] Author: Jr Watson Jr., MD Service: ? [...] head. States these were recently checked at [facility] when pt presented with stroke like [...] breast cancer H (more content not included)... [facility] 08-31-2022 Miscellaneous Notes Received fax referral for sleep: Dr. Watson with patient preference scheduling at [facility] [place]. DX: Hypersomnia, unspecified. Records given to Amy. Christy Parish MA documented in this encounter [facility]* Diagnosis Obstructive sleep apnea (adult) (pediatric)- Primary [facility] [place] [facility] Diagnosis COLE (obstructive sleep apnea)- Primary Obstructive sleep apnea (adult) (pediatric) Malaise and fatigue Other malaise and fatigue BRITO (dyspnea on exertion) [R06.09] Other dyspnea and respiratory abnormality Palpitations [R00.2] Palpitations documented in this encounter [facility] Summary Purpose Family History No Family [...] or prosecute any alcohol or drug abuse patient.[facility] HospitalIn the event this information is protected by the Federal Confidentiality of Alcohol and Drug Abuse Patient Records regulations: The Federal rules restrict any use of the information to criminally investigate or prosecute any alcohol or drug abuse patient.[facility] HospitalIn the event this information is protected by the Federal Confidentiality of Alcohol and Drug Abuse Patient Records regulations: The Federal rules restrict any use of the information to criminally investigate or prosecute any alcohol or drug abuse patient.[facility] HospitalIn the event this information is protected by the Federal Confidentiality of Alcohol and Drug Abuse Patient Records regulations: The Federal rules restrict any use of the information to criminally investigate or prosecute any alcohol or drug abuse patient.[facility] HospitalIn the event this information is protected by the Federal Confidentiality of Alcohol and Drug Abuse Patient Records regulations: The Federal rules restrict any use of the information to criminally investigate or prosecute any alcohol or drug abuse patient.[facility] HospitalIn the event this information is protected by the Federal Confidentiality of Alcohol and Drug Abuse Patient Records regulations: The Federal rules restrict any use of the information to criminally investigate or prosecute any alcohol or drug abuse patient.[facility] HospitalIn the event this information is protected by the Federal Confidentiality of Alcohol and Drug Abuse Patient Records regulations: The Federal rules restrict any use of the information to criminally investigate or prosecute any alcohol or drug abuse patient.[facility] HospitalIn the event this information is protected by the Federal Confidentiality of Alcohol and Drug Abuse Patient Records regulations: The Federal rules restrict any use of the information to criminally investigate or prosecute any alcohol or drug abuse patient.[facility] HospitalIn the event this information is protected by the Federal Confidentiality of Alcohol and Drug Abuse Patient Records regulations: The Federal rules restrict any use of the information to criminally investigate or prosecute any alcohol or drug abuse patient.[facility] Reason for Visit (unrecogniz ed section and content) Reason Comments Medication Question The pt was contacted in regards to medications that may alter MSLT test results. Reason Comments Patient Question Reason Comments cpap compliance Reason Comments Established Patient Sleep Apnea Care Teams (unrecognized sec tion and content) Rotary Adjuster Relationship Specialty Start Date End Date David Johnson MD NO FORWARDING ADDRESS PCP - General Internal Medicine 08/31/22 Rotary Adjuster Relationship Specialty Start Date End Date David Johnson MD NO FORWARDING ADDRESS PCP - General Internal Medicine 08/31/22 Rotary Adjuster Relationship Specialty Start Date End Date David Johnson MD NO FORWARDING ADDRESS PCP - General Internal Medicine 08/31/22 Rotary Adjuster Relationship Specialty Start Date End Date David Johnson MD NO FORWARDING ADDRESS PCP - General Internal Medicine 08/31/22 Rotary Adjuster Relationship Specialty Start Date End Date David Johnson MD NO FORWARDING ADDRESS PCP - General Internal Medicine 08/31/22 INFORMATION SOURCE (unrecogn ized section and content) DATE CREATED AUTHOR AUTHOR'S MICKI ATION 05/25/2023 [facility] FOR RECORDS PERTAINING TO PATIENTS WHO ARE [...] BE BASED ON THE PRIMARY CLINICAL RECORDS. [email or web address] provides no warranty or guarantee of the accuracy or completeness of information in this document.
== END | disposition home or self-care (01) ==
PROVIDERS: PCP Internal Medicine; Referring Provider Internal Medicine; Visit Provider Internal Medicine
DX: Z12.31 Encounter for screening mammogram for malignant neoplasm of breast (principal)
CPT/HCPCS: 77063; 77067

== ENCOUNTER → 2023-09-13 | Outpatient (CLI) | payer MEDICARE, SELFPAY ==
--- NOTE | 2023-09-13 13:42 | CT_ITS ---
STUDY: LOW DOSE CT LUNG CANCER SCREENING REASON FOR EXAM: Female, 73 years old. h/o Tobacco dependency. The patient smoked 2 packs per day for 44 years. History of right breast cancer. RADIATION DOSAGE (If Supplied By Facility): CTDIvol = ( 3.02 ) mGy, DLP = ( 104.95 ) mGycm TECHNIQUE: No contrast was administered. Low dose technique was utilized (average mAS-38 and kVp 120). 1.25 mm axial source images with a slice interval of 1.25-mm were reconstructed in lung windows. 2.5 mm axial source images with a slice interval of 2.5-mm were reconstructed in lung windows. 5.0 mm axial source images with a slice interval of 5.0-mm were reconstructed in soft tissue windows. COMPARISON: None. NODULES: There is a 4 mm noncalcified nodule in the posterior aspect of the left lung apex as seen on axial image #36. Emphysema: Findings suggestive of scarring in the right lung apex. Hyperinflation. Diffuse emphysematous changes worse in the upper lobes. Endobronchial lesion: None Aorta: Minimal atherosclerotic plaque formation of the aortic arch. CORONARY ARTERIES: Coronary artery calcification is not seen. Heart: Unremarkable Pulmonary artery: Unremarkable Mediastinal nodes: Small mediastinal lymph nodes. Other chest and abdominal findings: CT/Low Dose CT Lung Screening IMPRESSION: Lung-RADS category 2 - Continue annual screening with LDCT in 12 months. IMPORTANT NOTES FOR USE: ACR Lung-RADS Version 1.1 Assessment Categories Release Date: 2018 Category: Coded 0-4 bases on nodule(s) with highest degree of suspicion. Negative screen is defined as categories 1 and 2; a positive screen is defined as categories 3 and 4. Category 3 and 4A nodules that are unchanged on interval CT should be coded as category 2, and individuals returned to screening in 12 months. Category 4X: Category 3 or 4 nodules with additional imaging findings that increase the suspicion of lung cancer, such as spiculation, GGN that doubles in size in 1 year, enlarged lymph notes, etc. Category Modifiers: S (significant finding unrelated to lung cancer) Electronically Signed: Gregory Carrington MD at 15:03 EST ,
--- OUTSIDE RECORDS SUMMARY | 2023-09-13 17:46 | XMS RPT_ITS | CCD ---
Author Name Unknown Address [address] [place] [id number] Organization [facility] Care Team Providers Care Call Manager Name Role Phone David Johnson MD Primary [...] Codeine; Translations: [CODEINE] Drug Allergy 12-27-2022 Unknown [facility] (10 sources) EPINEPHrine; Translations: [EPINEPHRINE] Drug Allergy 12-27-2022 Unknown [facility] (10 sources) Etodolac; Translations: [ETODOLAC] Drug Allergy 12-27-2022 Unknown [facility] (10 sources) Morphine; Translations: [MORPHINE] Drug Allergy 12-27-2022 Unknown [facility] Medications Current Medications Medication Drug Class(es) [...] 05-17-2023 End: 05-17-2023 ambulatory DAVID JOHNSON Facility:[facility] Start: 05-17-2023 End: 05-17-2023 ambulatory Jr [...] - S liam or Plasma Lipid Screening [facility] Start: 08-12-2025 LIPID SCREEN LIPID SCREEN [facility] Start: 04-08-2023 Influenza vaccination C [facility] Start: 10-14-2022 COVID-19 VACCINE (6 - Moderna series) COVID-19 VACCINE (6 - Moderna series) [facility] Start: 08-08-2022 ADVANCE DIRECTIVE DISCUSSION ADVANCE DIRECTIVE DISCUSSION [facility] Start: 08-08-2022 DEPRESSION ASSESSMENT DEPRESSION ASS ESSMENT [facility] Start: 04-08-2022 Influenza vaccination INFLUENZA (#1) [facility] Start: 2015 BONE DENSITY BONE DENSITY [facility] Start: 2015 Bone Density Screening Bone Density Screening [facility] Start: 2015 Pneumococcal Vaccine : 65+ (1 - PCV) Pneumococcal Vaccine: 65+ (1 - PCV) [facility] Start: 2015 PNEUMOCOCCAL: 65+ (1 - PCV) PNEUMOCOCCAL: 65+ (1 - PCV) [facility] Start: 02-16-2000 SHINGRIX VACCINE (1 of 2) SHINGRIX V ACCINE (1 of 2) [facility] Start: 1995 COLOGUARD (FIT-DNA) COLOGUARD (FIT-D NA) [facility] Start: 1995 Colonoscopy COLONOSCOPY [facility] Start: 1995 COLORECTAL CANCER SCREENING COLORECTAL CANCER SCREENING [facility] Start: [address] COLONOGRAPHY [facility] Start: 1995 DIABETES SCREEN DIABETES SCREEN [facility] Start: 1995 Diabetes Screening Diabetes Screenin g [facility] Start: 1995 FECAL OCCULT BLOOD FECAL OCCULT BLOO D [facility] Start: 1995 LIPID SCREEN LIPID SCREEN [facility] Start: 1995 SIGMOIDOSCOPY SIGMOIDOSCOPY [facility] Start: 1990 Mammography [facility] Start: 1969 Urine microalbumin profile [facility] Start: 02-16-1968 HEPATITIS C SCREENING HEPATITIS C SC REENING [facility] Start: 1950 COVID-19 VACCINE (#1) COVID-19 VACCI NE (#1) [facility] Immunizations Immunization Date Immunization Notes Care Provider Fa cility 07-01-2021 influenza virus vacc ine, unspecified formulation Jr Watson Jr., MD Work Phone: [facility] Payers Date Payer Category Payer Medicare [facility] AARP MEDICAR E [facility] AARP MEDICARE HMO [id number] 2022-Present [phone] [address] [address] [place] [address] O [id number] 2022 Medicare [id number] Social History Date Type Detail Facility Tobacco smoking stat [facility] Tobacco smoking consumption unknown [facility] Start: 1950 Sex Assigned At Not on file C [facility] Start: 12-23-2022 Tobacco smoking stat [facility] Ex-smoker [facility] End: 08-08-2009 History of tobacco use Current smoker [facility] End: 08-08-2009 History of tobacco use Cigarette Smoker [facility] History of tobacco use Passive smoker [facility] Start: 12-23-2022 Tobacco use and exposure Smokeless t obacco non-user [facility] Start: 12-27-2022 End: 05-17-2023 Alcohol intake Current drinker of alcohol (finding) [facility] Start: 12-23-2022 Alcohol Comment Holidays/speci al occasions only [facility] Start: 12-27-2022 End: 05-10-2023 History of Social function [facility] Start: 12-27-2022 End: 05-10-2023 Tobacco use panel [facility] National Score (1-10 0), lower number is lower risk 47 [facility] Clinical Notes 08-31-2022 to 05-17-2023 Patient InstructionsJr Watson Jr., MD - 05/17/2023 11:20 AM EDTTelephone Encounter - Malena Burgess LPN - 05/02/2023 9:37 AM Joan Ross, PhD - 03/15/2023 8:24 PM EDT Note Date & Type Note Facility 05-17-2023 Note HNO ID: [id number] Author: Jr Watson Jr., MD Service: ? Author Type: Physician Type: Progress Notes Filed: 05/23/2023 11:01 PM Note Text: [facility] Virtual Visit Follow up/ Established patient visit Date of last visit : Visit date not found I have communicated my name and active licensure. The patient's identity and physical location were verified at the time of this visit. Either the patient or their legal event representative has been informed of the risks [...] or near accidents due to drowsy drivin [place] Sleepiness Scale 05/10/2023 Score 4 (No daytime [...] PMH Allergic rhinitis (more content not included)... [facility] 05-17-2023 Instructions Arlene Crump MD [...] up in [address] Watson[address] [facility] Requirements - Your insurance requires a [id number] follow up visit within a 31-90 day [...] For further information see the website below [email or web address] documented in this encounter [facility] 05-17-2023 History of Presen t illness Narrative Images from the original note were not included. [facility] Virtual Visit Follow up/ Established patient visit Date of last visit : Visit date not found I have communicated my name and active licensure. The patient's identity and physical location were verified at the time of this visit. Either the patient or their legal event representative has been informed of the risks [...] (AHI): 59.2 Treatment : PAP therapy DME: [employer] PAP History: Uses AutoPAP for 8 hours [...] or near accidents due to drowsy drivin [place] Sleepiness Scale 05/10/2023 Score 4 (No daytime [...] will cc PCP In interim continue autopap [id number], reviewed [facility] PAP supply guidelines Follow up in 3 months Plan discussed with attending physician Dr. Walter Crump MD Sleep Medicine Fellow [facility] STAFF PHYSICIAN NOTE OF PERSONAL INVOLVEMENT IN [...] licensure. The patient's identity and physical location ([place]) were verified at the time of this [...] Extremely difficult PHQ-9 Score 12 (Moderate Depression) [place] Sleepiness Scale 05/10/2023 Score 4 (No daytime [...] which included preparing to see the patient, [id number] patient care, completing clinical documentation, obtaining and/or reviewing separately obtained history, performing a medically appropriate examination, counseling and educating the patient/family/caregiver, communicating with other HCPs (not separately reported), independently interpreting results (not separately reported), and communicating results to the patient/family/caregiver (results include PAP data download). documented in this encounter [facility] 05-02-2023 Miscellaneous Notes Spoke with [facility] and requested pap download Waiting for report to be faxed Malena Burgess LPN documented in this encounter [facility] 04-06-2023 Miscellaneous Notes Pt read message at 12:42 PM on 04/06/2023. Nothing further at this time. Fatuma Deal LPN documented in this encounter [facility] 03-23-2023 Miscellaneous Notes Lenard returned called. Let nurse Radha know that we had sent the orders to [facility] and they will be contacting her for [...] for clarification. Cassidy can be reached at [phone]. Thank you! Cheryl Maldonado documented in this encounter [facility] 03-22-2023 Miscellaneous Notes PAP therapy orders and required documentation faxed to [facility] at [phone]. Nothing further at this time. ADINA Thompson Sent [facility] message to let pt know Dr. Watson will prescribe machine. And asked for DME company preference. Fatuma Deal LPN documented in this encounter [facility] 03-15-2023 Note HNO ID: [id number] Author: Joan Sloan, PhD Service: ? Author [...] late wake times). Procedure: Actigraphy (CPT code 11449) Reason for study: hypersomnia-MSLT planned Length of [...] and adequate sleep duration prior to MSLT. Collins : Joan Sloan, PhD, [facility] Psychologist ([place] License [id number]) Behavioral Sleep Medicine Disclosure: There are limitations of actigraphy data. This test is not a measure of daytime sleepiness or insomnia. Findings may suggest the etiology of sleepiness due to an observed pattern or help in the understanding of patterns associated with conditions being evaluated [facility] 03-15-2023 Procedure note Associated Ord er(s): [...] late wake times). Procedure: Actigraphy (CPT code 15940) Reason for study: hypersomnia-MSLT planned Length of [...] and adequate sleep duration prior to MSLT. [place] : Joan Sloan, PhD, [facility] Psychologist ([place] License [id number]) Behavioral Sleep Medicine Disclosure: There are limitations of actigraphy data. This test is not a measure of daytime sleepiness or insomnia. Findings may suggest the etiology of sleepiness due to an observed pattern or help in the understanding of patterns associated with conditions being evaluated documented in this encounter [facility] 03-15-2023 Miscellaneous Notes Scheduled pt a follow up appointment virtually with Dr. Watson to go over sleep study results. Fatuma Deal LPN Offered a virtual appointment with Dr. Watson. Sent message confirming. Fatuma Deal LPN documented in this encounter [facility] 03-14-2023 Note HNO ID: [id number] Author: Lisa Ulloa Service: ? Author Type: ? Type: Progress Notes Filed: 03/14/2023 10:04 AM Note Text: The patient did not meet the criteria to have the MSLT. Her AHI was > 15. The daytime study was canceled. [facility] 03-14-2023 Note HNO ID: [id number] Author: Derek Wild Service: ? Author Type: ? Type: Progress Notes Filed: 03/14/2023 3:59 AM Note Text: Sleep Study Check-In Documentation Date: March 14, 2023 Name: Claudette Manzo Patient was accompanied by Self. Location: IC Latex allergy: No Tape allergy: No Current medications were reviewed with the patient:Yes Sleep aid taken by patient for the sleep study: [place] of sleep aid: Not Applicable Procedure was [...] provider regarding test results Derek Mooney Poly-T [facility] 02-28-2023 Note HNO ID: [id number] Author: Lizzy Danielson Service: ? Author Type: ? Type: Progress Notes Filed: 03/15/2023 8:34 PM Note Text: ACTIGRAPHY DEVICE # [id number] Date shipped out 02/28/2023 [employer] MAIL OUT TRACKING NUMBER [phone] [employer] RETURN TRACKING NUMBER [phone] [id number], [place] [facility] 02-28-2023 History of Presen t illness Narrative ACTIGRAPHY DEVICE # [id number] Date shipped out 02/28/2023 [employer] MAIL OUT TRACKING NUMBER [phone] [employer] RETURN TRACKING NUMBER [phone] [id number], [place] documented in this encounter [facility] 01-31-2023 Miscellaneous Notes The pt was contacted in regards to medications that may alter MSLT test results. The medication includes Prozac. The pt did not answer. A VM was left instructing them to reach out to Dr. Watson in regards to medication adjustments, and to not make any changes d/t this call. documented in this encounter [facility] 12-27-2022 Note HNO ID: [id number] Author: Jr Watson Jr., MD Service: ? [...] head. States these were recently checked at [facility] when pt presented with stroke like [...] breast cancer H (more content not included)... [facility] 08-31-2022 Miscellaneous Notes Received fax referral for sleep: Dr. Watson with patient preference scheduling at [facility]. DX: Hypersomnia, unspecified. Records given to Amy. Christy Parish MA documented in this encounter [facility] documented [facility] Diagnosis Obstructive sleep apnea (adult) (pediatric)- Primary [facility] Diagnosis COLE (obstructive sleep apnea)- Primary Obstructive sleep apnea (adult) (pediatric) Malaise and fatigue Other malaise and fatigue BRITO (dyspnea on exertion) [R06.09] Other dyspnea and respiratory abnormality Palpitations [R00.2] Palpitations documented in this encounter [facility] Summary Purpose Family History No Family [...] or prosecute any alcohol or drug abuse patient.[facility] the event this information is protected by the Federal Confidentiality of Alcohol and Drug Abuse Patient Records regulations: The Federal rules restrict any use of the information to criminally investigate or prosecute any alcohol or drug abuse patient.[facility] the event this information is protected by the Federal Confidentiality of Alcohol and Drug Abuse Patient Records regulations: The Federal rules restrict any use of the information to criminally investigate or prosecute any alcohol or drug abuse patient.[facility] Hospital[facility] the event this information is protected by the Federal Confidentiality of Alcohol and Drug Abuse Patient Records regulations: The Federal rules restrict any use of the information to criminally investigate or prosecute any alcohol or drug abuse patient.[facility] HospitalIn the event this information is protected by the Federal Confidentiality of Alcohol and Drug Abuse Patient Records regulations: The Federal rules restrict any use of the information to criminally investigate or prosecute any alcohol or drug abuse patient.[facility] the event this information is protected by the Federal Confidentiality of Alcohol and Drug Abuse Patient Records regulations: The Federal rules restrict any use of the information to criminally investigate or prosecute any alcohol or drug abuse patient.[facility] the event this information is protected by the Federal Confidentiality of Alcohol and Drug Abuse Patient Records regulations: The Federal rules restrict any use of the information to criminally investigate or prosecute any alcohol or drug abuse patient.[facility] Hospital[facility] the event this information is protected by the Federal Confidentiality of Alcohol and Drug Abuse Patient Records regulations: The Federal rules restrict any use of the information to criminally investigate or prosecute any alcohol or drug abuse patient.[facility] Hospital[facility] the event this information is protected by the Federal Confidentiality of Alcohol and Drug Abuse Patient Records regulations: The Federal rules restrict any use of the information to criminally investigate or prosecute any alcohol or drug abuse patient.[facility] Reason for Visit (unrecogniz ed section and content) Reason Comments Medication Question The pt was contacted in regards to medications that may alter MSLT test results. Reason Comments Patient Question Reason Comments cpap compliance Reason Comments Established Patient Sleep Apnea Care Teams (unrecognized sec tion and content) Call Manager Relationship Specialty Start Date End Date David Johnson MD NO FORWARDING ADDRESS PCP - General Internal Medicine 08/31/22 Call Manager Relationship Specialty Start Date End Date David Johnson MD [place] FORWARDING ADDRESS PCP - General Internal Medicine 08/31/22 Call Manager Relationship Specialty Start Date End Date David Johnson MD [place] FORWARDING ADDRESS PCP - General Internal Medicine 08/31/22 Call Manager Relationship Specialty Start Date End Date David Johnson MD [place] FORWARDING ADDRESS PCP - General Internal Medicine 08/31/22 Call Manager Relationship Specialty Start Date End Date David Johnson MD NO FORWARDING ADDRESS PCP - General Internal Medicine 08/31/22 INFORMATION SOURCE (unrecogn ized section and content) DATE CREATED AUTHOR AUTHOR'S MICKI ATION 05/25/2023 [facility] FOR RECORDS PERTAINING TO PATIENTS WHO [...] BE BASED ON THE PRIMARY CLINICAL RECORDS. [employer] provides no warranty or guarantee of the accuracy or completeness of information in this document.
== END | disposition home or self-care (01) ==
LOC: CT 13:40
PROVIDERS: PCP Internal Medicine; Referring Provider Internal Medicine Critical Care Medicine; Visit Provider Internal Medicine Critical Care Medicine
DX: Z12.2 Encounter for screening for malignant neoplasm of respiratory organs (principal); F17.211 Nicotine dependence, cigarettes, in remission; R06.02 Shortness of breath
CPT/HCPCS: 71271